=== PATIENT | male | born 1975 | race Caucasian/White ===

== ENCOUNTER 2024-03-02 14:21 | Outpatient (REF) | payer BC, SELFPAY | END 2024-03-02 14:22 | disposition home or self-care (01) | LOC: HO.SH 14:21 | PROVIDERS: Visit Provider Nurse Practitioner Family | DX: Z01.118 Encounter for examination of ears and hearing with other abnormal findings (principal); H90.3 Sensorineural hearing loss, bilateral | CPT/HCPCS: 92557; 92567 ==

== ENCOUNTER 2024-11-08 13:16 | Inpatient (IN) | payer OTHER, SELFPAY ==
[2024-11-08 13:29] VITALS: BP 166/91; PULSE 70; RESP 16; TEMP 36.6; O2SAT 94
--- NOTE | 2024-11-08 13:36 | ED_ITS ---
HPI - Psych General Chief Complaint: Psychiatric Symptoms Stated Complaint: Section 12, SI/HI, hx bipolar Source: patient, EMS and old records reviewed Mode of arrival: EMS Limitations: no limitations History of Present Illness ED Provider: SHONA HPI Narrative: 49 yo male with PMH of LVH, DM, bipolar who smokes a lot of weed here with SI which I suspect is due to family issues he has plans to shoot himself his neighbor has guns and he has access to them. He denies any trauma or ingestion. He was sent in on section 12. He is very vague on arrival states I am going to need a lot of tissues. MD complaint: suicidal ideation and feels depressed Onset (ago): week(s) Duration: getting worse History of same: Yes Relieving factors: none Exacerbating factors: other Context: significant life stressor Associated psychiatric symptoms: depression and suicidal ideation Associated symptoms: denies other symptoms Treatments prior to arrival: placed on mental health hold If self harm: admits thoughts of self harm Related Data Home Medications ?Medication ?Instructions ?Recorded ?Confirmed atorvastatin 20 mg tablet 20 mg PO BEDTIME 11/08/24 11/08/24 blood sugar diagnostic (Contour 11/08/24 11/08/24 Next Test Strips) buspirone 10 mg tablet 10 mg PO BID 11/08/24 11/08/24 dapagliflozin propanediol 10 mg 10 mg PO DAILY 11/08/24 11/08/24 tablet (Farxiga) dulaglutide 0.75 mg/0.5 mL 0.75 mg subcut QWEEK 11/08/24 11/08/24 [facility] eplerenone 50 mg tablet 50 mg PO DAILY 11/08/24 11/08/24 fluticasone propionate 50 2 spray intranasal DAILY PRN 11/08/24 11/08/24 mcg/actuation nasal Allergy Symptoms spray,suspension lamotrigine 150 mg tablet 150 mg PO DAILY 11/08/24 11/08/24 lisinopril 20 mg tablet 20 mg PO DAILY 11/08/24 11/08/24 metformin 500 mg tablet 500 mg PO QPM 11/08/24 11/08/24 metoprolol succinate 25 mg 25 mg PO QAM 11/08/24 11/08/24 tablet,extended release 24 hr nicotine 21 mg/24 hr daily 1 patch topical DAILY 11/08/24 11/08/24 transdermal patch sertraline 100 mg tablet 200 mg PO DAILY 11/08/24 11/08/24 Allergies Allergy/AdvReac Type Severity Reaction Status Date / Time No Known Allergies Allergy Verified 11/08/24 13:45 Review of Systems 2 Review of Systems: Constitutional : No Fever, No Chills ENT/Mouth : No Ear Pain, No Nasal Congestion, No sore throat Eyes: No Eye Pain, No Swelling, No Redness Cardiovascular : No Chest Pain, No SOB Respiratory : No Cough, No Sputum, No Dyspnea Gastrointestinal : No Nausea, No Vomiting, No Diarrhea, No Hematochezia, No Melena Genitourinary : No Dysuria, No Urinary Frequency, No Hematuria Musculoskeletal : No Myalgias Skin : No Skin Lesions, No rash Neuro : No Weakness, No Numbness, No Paresthesias, No Dizziness, No Headache Psych : positive Anxiety, positive Depression, positive SI no HI All other systems reviewed and are negative [facility] Past Medical History Attestation statement: The following information was validated with the patient. Source: old records reviewed Medical History (Updated 11/08/24 @ 13:55 by Teresa Urias DO) LVH (left ventricular hypertrophy) Bipolar 1 disorder Diabetes Social History Social History (Updated 11/08/24 @ 13:53 by Teresa Urias DO) Patient Tobacco Use Status: Current everyday Tobacco user Substance Use Type: Marijuana Advance Directives: No Advance Directives Information Provided: No Do you have a plan to hurt others: High Lethality and Vague Physical Exam 2 Vital Signs: Vital Signs: Last Vital Signs Temp 97.8 F 11/08/24 13:29 Pulse 70 11/08/24 13:29 Resp 16 11/08/24 13:29 BP 166/91 H 11/08/24 13:29 Pulse Ox 94 11/08/24 13:29 O2 Del Method Room Air 11/08/24 13:32 BMI result Body Mass Index 30.0 Appearance: Alert. Oriented X3. No acute distress. Eyes: Pupils equal, round and reactive to light. ENT: Pharynx normal. Neck: Normal inspection. Neck supple. CVS: Normal heart rate and rhythm. Pulses normal. Respiratory: No respiratory distress. Breath sounds normal. Abdomen: Soft and nontender. Skin: Skin warm and dry. Normal skin color. Normal skin turgor. Extremities: No lower extremity edema. No calf ttp Neuro: Oriented X 3. No motor deficit. No sensory deficit. CN2-12 intact Medications Administered Discontinued Medications Generic Name Dose Route Start Last Admin Trade Name Hunter PRN Reason Stop Dose Admin Nicotine 21 mg 11/08/24 13:47 11/08/24 14:11 Nicotine 21 Mg Patch.Td24 TRANSDERMA 11/08/24 13:48 21 mg ONCE ONE Administration Medical Decision Making Medical Decision Making [facility] Narrative: 49 yo male with PMH of bipolar, DM, LVH here with c/o SI and depression has access to guns also has plan to blow himself up - at this time he is on S12 will need labs, CARE team consult. He denies any medical complaints 11/08/2024 at 20:13 hours, Dr. Tahir Cordero's note: Patient was laboratory evaluation was unremarkable. Drug screen urine was positive for marijuana. Twelve EKG revealed a normal QTC interval but a prolonged QRS with a nonspecific interventricular conduction delay.The patient was evaluated by the care team and did meet criteria for admission. The patient will be admitted to our psychiatric unit. Differential Diagnosis Differential Diagnoses: The differential diagnosis associated with the presentation includes depression, SI Admission/Observation Consideration of admission/observation: Escalation of care including admission/observation considered physician observation ordered at 154pm pending CARE team Consult Healthcare Provider Management of the patient was discussed with: Behavioral Health Provider Lab Data [facility] Lab Attestation statement: I reviewed the patient's lab results. My interpretation patient's laboratory evaluation as follows: WBC elevated 13,900. BUN elevated 22 with a normal creatinine of 0.89. LFTs were normal. Urinalysis was positive for protein and glucose. Microscopic was negative for infection. Alcohol was below detectable limits. Drug screen urine was positive for marijuana. 11/08/24 13:56 11/08/24 13:56 Labs: Lab Results 11/08/24 11/08/24 Range/Units 13:56 14:02 WBC 13.9 H (4.8-10.8) X10*3/uL RBC 5.66 (4.60-5.80) X10*6/uL Hgb 16.8 (14.0-18.0) g/dl Hct 49.1 (42.0-52.0) % MCV 86.7 (80.0-98.0) fL MCH 29.7 (27.0-33.0) pg MCHC 34.2 (31.0-36.0) g/dl RDW 13.3 (11.0-16.0) % Plt Count 223 (160-400) X10*3/uL MPV 8.9 L (9.4-12.4) fL Immature Gran % (Auto) 0.6 H (0.0-0.4) % Neut % (Auto) 70.0 (45-73) % Lymph % (Auto) 20.3 (20-40) % [place] % (Auto) 5.8 (2-11) % Eos % (Auto) 2.9 (0-4) % Baso % (Auto) 0.4 (0-2) % Lymph # (Auto) 2.8 (1.2-4.9) X10*3/uL [place] # (Auto) 0.8 (0.1-1.2) X10*3/uL Eos # (Auto) 0.4 (0.0-0.4) X10*3/uL Baso # (Auto) 0.1 (0.0-0.2) X10*3/uL Abs Immat Gran (auto) 0.08 H (0.00-0.03) X10*3/uL Absolute Neuts (auto) 9.7 H (2.0-8.3) x10*3/uL Absolute Nucleated RBC 0.000 (0.0-0.012) X10*3/uL Nucleated RBC % (auto) 0.0 (0.0-0.2) /100WBC Sodium 139 (135-145) mmol/L Potassium 4.1 (3.3-5.1) mmol/L Chloride 104 (96-108) mmol/L Carbon Dioxide 28 (22-29) mmol/L Anion Gap 11 L (12-20) BUN 22 H (9-16) mg/dL Creatinine 0.89 (0.5-1.4) mg/dL Estim Creat Clear Calc 99.8 Estimated GFR > 60 Random Glucose 126 H (60-115) mg/dL Calcium 9.9 (8.4-10.2) mg/dL Magnesium 2.0 (1.6-2.6) mg/dL Total Bilirubin 0.5 (0.0-1.0) mg/dL Direct Bilirubin 0.2 (0.0-0.5) mg/dL AST 22 (5-37) U/L ALT 17 (0-40) U/L Alkaline Phosphatase 98 (39-117) U/L Total Protein 7.4 (6.5-8.0) g/dL Albumin 4.4 (3.5-5.0) g/dL Urine Color Yellow Urine Appearance Clear Urine pH 5.5 (5.0-9.0) Ur Specific [place] 1.025 (1.005-1.025) Urine Protein 30 (1+) H (Neg-Trace) mg/dL Urine Glucose (UA) >=1000 H (Negative) mg/dL Urine Ketones Negative (Negative) mg/dL Urine Blood Negative (Negative) Urine Nitrite Negative (Negative) Ur Leukocyte Esterase Negative (Negative) Urine RBC 0-2 (0-2) /HPF Urine WBC 0-5 (0-5) /HPF Ur Squamous Epith Cells 0-2 (0-2) /HPF Urine Bacteria None Seen (None Seen) Hyaline Casts 0-2 (0-2) /LPF Urine Opiates Screen Not Detected (Not Detect) Ur Buprenorphine Scrn Not Detected (Not Detect) ng/mL Ur Oxycodone Screen Not Detected (Not Detect) ng/mL Urine Methadone Screen Not Detected (Not Detect) ng/mL Urine Fentanyl Screen Not Detected (Not Detect) Ur Barbiturates Screen Not Detected (Not Detect) Ur Phencyclidine Scrn Not Detected (Not Detect) Ur Amphetamines Screen Not Detected (Not Detect) U Benzodiazepines Scrn Not Detected (Not Detect) Urine Cocaine Screen Not Detected (Not Detect) U Marijuana (THC) Screen POSITIVE H (Not Detect) Ethyl Alcohol < 10 mg/dL Independent Interpretation I performed an independent interpretation of an: EKG Interpretation: My independent interpretation patient's 12 EKG done on 11/09/2023 at 16:56 hours is as follows: Sinus rhythm with a rate of 67 and a first-degree AV block with a [place] of 220 milliseconds, prolonged QRS of 100 milliseconds, normal QTC of 450 milliseconds, no ST segment elevation, no ST segment depression, nonspecific intraventricular conduction delay, Q-waves V1 through V2 . No old EKG for comparison Independent Historian Clinical information obtained from an independent historian. History obtained from or confirmed by: EMS External Record Review External record reviewed: Outpatient record Discharge Plan Discharge Clinical Impression: Suicidal ideation Patient Disposition: Admitted As Inpatient Interventions: [place]-Suicide Risk Severity Scale Last Done: 11/08/24 13:47
--- NOTE | 2024-11-08 13:47 | ECG_ITS ---
Test Reason : M5 ADMISSION Blood Pressure : */* mmHG Vent. Rate : 67 BPM Atrial Rate : 67 BPM P-R Int : 220 ms QRS Dur : 100 ms QT Int : 426 ms P-R-T Axes : 12 86 70 degrees QTcB Int : 450 ms Sinus rhythm with 1st degree A-V block Left atrial enlargement Left ventricular hypertrophy ( Sokolow-Lafleur , Stephan product , Romhilt-Jacob ) Cannot rule out Septal infarct , age undetermined Abnormal ECG No previous ECGs available Referred By: Teresa Urias Electronically Signed By: GAGE UNDERWOOD MD
--- NOTE | 2024-11-08 13:49 | PC.NURSE ---
[facility] staff member called (Karin) to fax over assessment report. Callback number or
[2024-11-08 14:11] LABS: MANUAL DIFF FLAG NO
[2024-11-08] MEDS: Nicotine 21 MG PATCH.TD24 TRANSDERMA (14:11)
[2024-11-08 14:13] LABS: Basophils Absolute Auto 0.1 X10*3/uL (0.0-0.2); Basophils Percent Auto 0.4 % (0-2); Eosinophils Absolute Auto 0.4 X10*3/uL (0.0-0.4); Eosinophils Percent Auto 2.9 % (0-4); Hematocrit 49.1 % (42.0-52.0); Hemoglobin 16.8 g/dl (14.0-18.0); Imm Gran Abs Auto 0.08 X10*3/uL (0.00-0.03); Imm Gran Pct Auto 0.6 % (0.0-0.4); Lymphocytes Absolute Auto 2.8 X10*3/uL (1.2-4.9); Lymphocytes Percent Auto 20.3 % (20-40); Mean Corpuscular HGB Conc 34.2 g/dl (31.0-36.0); Mean Corpuscular Hemoglobin 29.7 pg (27.0-33.0); Mean Corpuscular Volume 86.7 fL (80.0-98.0); Mean Platelet Volume 8.9 fL (9.4-12.4); Monocytes Absolute Auto 0.8 X10*3/uL (0.1-1.2); Monocytes Percent Auto 5.8 % (2-11); Neutrophils Absolute Auto 9.7 x10*3/uL (2.0-8.3); Platelet Count 223 X10*3/uL (160-400); Red Blood Count 5.66 X10*6/uL (4.60-5.80); Red Cell Distribution Width 13.3 % (11.0-16.0); White Blood Count 13.9 X10*3/uL (4.8-10.8)
[2024-11-08 14:25] LABS: Amphetamine Screen Urine Not Detected (Not Detect); Barbiturates, Urine Not Detected (Not Detect); Benzodiazepines Screen Urine Not Detected (Not Detect); Buprenorphine Scr Not Detected (Not Detect); Cannabinoid Screen Urine POSITIVE (Not Detect); Cocaine Screen Urine Not Detected (Not Detect); Fentanyl, urine Not Detected (Not Detect); Methadone Screen, Urine Not Detected (Not Detect); Opiate Screen Urine Not Detected (Not Detect); Oxycodone Screen Urine Not Detected (Not Detect); Phencyclidine Screen Urine Not Detected (Not Detect)
[2024-11-08 14:31] LABS: Alanine Aminotransferase 17 U/L (0-40); Albumin Level 4.4 g/dL (3.5-5.0); Alkaline Phosphatase 98 U/L (39-117); Anion Gap 11 (12-20); Aspartate Amino Transferase 22 U/L (5-37); Bilirubin Direct 0.2 mg/dL (0.0-0.5); Bilirubin Total 0.5 mg/dL (0.0-1.0); Blood Urea Nitrogen 22 mg/dL (9-16); Calcium 9.9 mg/dL (8.4-10.2); Carbon Dioxide 28 mmol/L (22-29); Chloride 104 mmol/L (96-108); Creatinine Clr Calc Pharmacy 99.8; Estimated Glomerular Filt Rate > 60; Ethanol < 10 mg/dL; Glucose Random 126 mg/dL (60-115); Potassium 4.1 mmol/L (3.3-5.1); Sodium 139 mmol/L (135-145); Total Protein 7.4 g/dL (6.5-8.0)
[2024-11-08 15:14] LABS: Appearance Urine Clear; Color Urine Yellow; Glucose Urine UA >=1000 mg/dL (Negative); Leukocyte Esterase Urine Negative (Negative); Nitrite Urine Negative (Negative); PH 5.5 (5.0-9.0); Specific Gravity - Urine 1.025 (1.005-1.025); UMIC TRIGGER UA YES; Urine Blood Negative (Negative); Urine Ketones Negative (Negative); Urine Protein 30 (1+) mg/dL (Neg-Trace)
[2024-11-08 15:18] LABS: Bacteria Urine None Seen (None Seen); Hyaline Casts Urine 0-2 /LPF (0-2); RBC Urine 0-2 /HPF (0-2); Squamous Epithelial Cell Urine 0-2 /HPF (0-2); WBC Urine 0-5 /HPF (0-5)
[2024-11-08 20:00] VITALS: BP 167/98; PULSE 74; TEMP 36.8; O2SAT 98
--- NOTE | 2024-11-08 20:09 | PC.NURSE ---
spoke to dr emery lab that was ordered for 1921 was intended for 11/09/24
--- NOTE | 2024-11-08 20:21 | PHA.MEDREC ---
Addendum entered by Se Barragan [facility] 11/08/24 20:21: med rec reviewed Original Note: Pharmacy Consult ? Medication Reconciliation Pharmacy has completed the medication reconciliation. Reviewed med rec done by nursing.
[2024-11-08] MEDS: Metoprolol Succinate ER 25 MG TAB.ER.24H PO (21:26)
[2024-11-08] MEDS: traZODone HCL 50 MG TABLET PO (21:26)
[2024-11-08] MEDS: busPIRone HCl 10 MG TABLET PO (21:26)
[2024-11-08] MEDS: hydrOXYzine HCL 25 MG TABLET PO (21:26)
[2024-11-08] MEDS: metFORMIN HCl 500 MG TABLET PO (21:26)
[2024-11-08] MEDS: Atorvastatin Calcium 20 MG TABLET PO (21:26)
--- NOTE | 2024-11-09 00:21 | PC.ADMIT ---
50 year old male patient with PMH of DM, HTN, Hyperlipidemia and LVH admitted to at 2039 on 11/08/24 having signed CV with diagnosis of SI/Depression. Per ED report patient planned to shoot himself with guns belonging to his neighbor which he had access to. Evaluated in the community patient arrived at [facility] as Section 12. Upon arrival to patient observed to be alert and oriented, well groomed, communicative and open to hospitalization. Vital signs obtained WNL, Height and weight obtained. Skin check unremarkable. Patient calm and cooperative with admission process. Patient states he has thoughts of self harm and has been thinking about how he might accomplish this however did not mention shooting himself to TW. Patient is recently homeless and unemployed. Dilip reports that his has recently been a patient on this unit. Tox screen positive for cannabis. Patient states he is an everyday user. Also reports smoking 1 pack of cigarettes daily. Arrived on unit wearing patch. Patient declined offer of Flu vaccine. Med reconciliation completed in ED. Patient placed on 15 minute checks for safety.
[2024-11-09 08:00] VITALS: BP 120/80
[2024-11-09] MEDS: lamoTRIgine 25 MG TABLET 150 MG PO (08:57)
[2024-11-09 08:58] VITALS: BP 120/80
[2024-11-09] MEDS: Metoprolol Succinate ER 25 MG TAB.ER.24H PO (08:58)
[2024-11-09 08:59] VITALS: BP 120/80
[2024-11-09] MEDS: lisinopriL 20 MG TABLET PO (08:59)
[2024-11-09] MEDS: Empagliflozin 10 MG TABLET PO (08:59)
[2024-11-09] MEDS: busPIRone HCl 10 MG TABLET PO ×2 (08:59→21:10)
[2024-11-09] MEDS: Sertraline HCL 100 MG TABLET 200 MG PO (09:00)
[2024-11-09] MEDS: Nicotine 21 MG PATCH.TD24 TRANSDERMA (09:02)
[2024-11-09 09:14] LABS: Estimated Average Glucose 111 mg/dL; Hemoglobin A1C 172.2261 umol/L; Hemoglobin A1c % 5.5 % (<6.0); Total Hemoglobin (HGBA1C) 4712.1764 umol/L
[2024-11-09 09:17] LABS: Alanine Aminotransferase 20 U/L (0-40); Albumin Level 4.3 g/dL (3.5-5.0); Alkaline Phosphatase 97 U/L (39-117); Anion Gap 13 (12-20); Aspartate Amino Transferase 25 U/L (5-37); Bilirubin Total 0.5 mg/dL (0.0-1.0); Blood Urea Nitrogen 18 mg/dL (9-16); Calcium 10.1 mg/dL (8.4-10.2); Carbon Dioxide 29 mmol/L (22-29); Chloride 105 mmol/L (96-108); Cholesterol 117 mg/dL (<200); Creatinine Clr Calc Pharmacy 105.8; Estimated Glomerular Filt Rate > 60; Glucose Random 92 mg/dL (60-115); HDL Cholesterol 41 mg/dL (>40); LDL Cholesterol Calculated 62 mg/dL (<100); Potassium 4.7 mmol/L (3.3-5.1); Sodium 142 mmol/L (135-145); Total Protein 7.3 g/dL (6.5-8.0); Triglycerides 72 mg/dL (<150)
[2024-11-09 09:32] LABS: TSH reflex Free T4 1.37 uIU/mL (0.32-4.0)
--- NOTE | 2024-11-09 14:23 | P.HPPS_ITS ---
HPI Date of Service: 11/09/24 Chief Complaint: Section 12, SI/HI, hx bipolar Sources of Information: patient interviewed, chart reviewed and crisis/core team assessment reviewed Additional Sources of Information: Seen 1130am HPI Subjective Notes: Terry Warning and Conditional Voluntary Healthcare Proxy: No Guardianship: No Medical Problems Affecting Mental Status: No Narrative: I had a good job and lost it, I have a gambling problem and an impulse control problem (bankruptcy 2020) closed my 401K for 20K, took out a credit card for $500 to pay bills. I left money mgt to my , but needed money when she was hospitalized. 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 I am defeated and I want to give up. 49 yo male, hx of bipolar disorder, reports SI due to being asked for divorce, needing to move from his home, being unemployed, feeling worthless and not keeping up with medications, including cardiac medications (Dx LVH). Reports health is failing and addiction to cannabis-3 grams daily. Reports was in pt last week, told him when she was discharged she wanted a divorce. Reports he understands this to separate finances, however feels betrayed and abandoned. He does not want to leave the family. Pt met with his therapist on Wednesday who suggested a crisis eval. By history, pt has pictured himself dying in certain circumstances for years and has been thinking about using a gun to suicide. He has also been thinking of carving his arm to remove the family tattoo he, and son designed. Identifies main concerns as housing, transportation, unemployment, medications and loss- my has been my rock. Note: visited this afternoon and is supportive of pt, of pt getting treatment, of herself continuing treatment and is available to assist him in this process. Past Psychiatric History: IP: Denies OP: [facility], Roma Woo-therapyTonya med provider SA: Denies-did have razors out to cut 17 years ago, stopped by his dog Medical Evaluation Reviewed: Yes [facility] Medical History (Updated 11/09/24 @ 20:33 by Adriana Villa, [employer]) Cannabis use disorder Bipolar disorder LVH (left ventricular hypertrophy) Bipolar 1 disorder Diabetes Narrative: CAD, Deaf Right Ear since childhood 30% hearing loss in L ear-needs hearing aide Social History: Born in [place]. Mom on February 16 when pt was 15-[place]. Sister was 4 years older Pt to live with father in [place]-they were not close, wanted to emancipate at 16 and essentially did-staying with friends, working at [employer]. States step mother hated him and there was conflict. Family moved to [place] from [place]. Has one younger step sister and brother, one half sister. Graduated from [employer] with honors, given a full [employer] scholarship but declined. Lived with a girlfriend and had a home and safe spot This relationship ended. Pt current in 2017 and reports her family has been very good to him Substance History: cannabis 3 grams daily Trauma History: Affirms Diagnostics Vital Signs (24Hr): Vital Signs - 24 hr 11/08/24 20:00 11/09/24 08:00 11/09/24 08:58 Temperature 98.2 F Pulse Rate 74 Blood Pressure 167/98 H 120/80 120/80 Pulse Oximetry 98 Oxygen Delivery Method Room Air 11/09/24 08:59 Temperature Pulse Rate Blood Pressure 120/80 Pulse Oximetry Oxygen Delivery Method BMI result Body Mass Index 30.0 Labs 11/08/24 13:56 11/09/24 08:09 Labs: Laboratory Results - last 48 hr 11/08/24 11/08/24 11/09/24 13:56 14:02 08:09 WBC 13.9 H RBC 5.66 Hgb 16.8 Hct 49.1 MCV 86.7 MCH 29.7 MCHC 34.2 RDW 13.3 Plt Count 223 MPV 8.9 L Immature Gran % (Auto) 0.6 H Neut % (Auto) 70.0 Lymph % (Auto) 20.3 [place] % (Auto) 5.8 Eos % (Auto) 2.9 Baso % (Auto) 0.4 Lymph # (Auto) 2.8 [place] # (Auto) 0.8 Eos # (Auto) 0.4 Baso # (Auto) 0.1 Abs Immat Gran (auto) 0.08 H Absolute Neuts (auto) 9.7 H Absolute Nucleated RBC 0.000 Nucleated RBC % (auto) 0.0 Sodium 139 142 Potassium 4.1 4.7 Chloride 104 105 Carbon Dioxide 28 29 Anion Gap 11 L 13 BUN 22 H 18 H Creatinine 0.89 0.84 Estim Creat Clear Calc 99.8 105.8 Estimated GFR > 60 > 60 Random Glucose 126 H 92 Estimat Average Glucose 111 Hemoglobin A1c % 5.5 Calcium 9.9 10.1 Magnesium 2.0 Total Bilirubin 0.5 0.5 Direct Bilirubin 0.2 AST 22 25 ALT 17 20 Alkaline Phosphatase 98 97 Total Protein 7.4 7.3 Albumin 4.4 4.3 Triglycerides 72 Cholesterol 117 LDL Cholesterol, Calc 62 HDL Cholesterol 41 TSH 1.37 Urine Color Yellow Urine Appearance Clear Urine pH 5.5 Ur Specific [place] 1.025 Urine Protein 30 (1+) H Urine Glucose (UA) >=1000 H Urine Ketones Negative Urine Blood Negative Urine Nitrite Negative Ur Leukocyte Esterase Negative Urine RBC 0-2 Urine WBC 0-5 Ur Squamous Epith Cells 0-2 Urine Bacteria None Seen Hyaline Casts 0-2 Urine Opiates Screen Not Detected Ur Buprenorphine Scrn Not Detected Ur Oxycodone Screen Not Detected Urine Methadone Screen Not Detected Urine Fentanyl Screen Not Detected Ur Barbiturates Screen Not Detected Ur Phencyclidine Scrn Not Detected Ur Amphetamines Screen Not Detected U Benzodiazepines Scrn Not Detected Urine Cocaine Screen Not Detected U Marijuana (THC) Screen POSITIVE H Ethyl Alcohol < 10 Meds/Allergies Meds Home Medications ?Medication ?Instructions ?Recorded ?Confirmed ?Type atorvastatin 20 mg tablet 20 mg PO BEDTIME 11/08/24 11/08/24 History blood sugar diagnostic (Contour 11/08/24 11/08/24 History Next Test Strips) buspirone 10 mg tablet 10 mg PO BID 11/08/24 11/08/24 History dapagliflozin propanediol 10 mg 10 mg PO DAILY 11/08/24 11/08/24 History tablet (Farxiga) dulaglutide 0.75 mg/0.5 mL 0.75 mg subcut QWEEK 11/08/24 11/08/24 History subcutaneous pen injector ([facility]ulicity) eplerenone 50 mg tablet 50 mg PO DAILY 11/08/24 11/08/24 History fluticasone propionate 50 2 spray intranasal DAILY PRN 11/08/24 11/08/24 History mcg/actuation nasal Allergy Symptoms spray,suspension lamotrigine 150 mg tablet 150 mg PO DAILY 11/08/24 11/08/24 History lisinopril 20 mg tablet 20 mg PO DAILY 11/08/24 11/08/24 History metformin 500 mg tablet 500 mg PO QPM 11/08/24 11/08/24 History metoprolol succinate 25 mg 25 mg PO QAM 11/08/24 11/08/24 History tablet,extended release 24 hr nicotine 21 mg/24 hr daily 1 patch topical DAILY 11/08/24 11/08/24 History transdermal patch sertraline 100 mg tablet 200 mg PO DAILY 11/08/24 11/08/24 History Allergies Allergies Allergy/AdvReac Type Severity Reaction Status Date / Time No Known Allergies Allergy Verified 11/08/24 13:45 Mental Status Exam Mental Status Exam Patient Appearance: Appropriate Patient Orientation: Person, Place, Time and Situation Level of Consciousness: Alert Patient Behavior: Talkative and Good Eye Contact Mood Description: Depressed Affect Description: Flat Patient Cognition Impaired: No Ability to Follow Directions: Good Speech Pattern: Spontaneous Speech Memory Description: Intact Hallucinations: None Delusions: Not Present Thought Process: Rumination Thought Content: positive for Circumstantial and positive for Perseveration Depressive Symptoms: Hopelessness, Unhappiness, Thoughts of /Suicide and Low Self Esteem Judgement: Fair Assessment & Plan Assessment & Plan (1) Bipolar disorder: Status: Acute Code(s): F31.9 - Bipolar disorder, unspecified (2) Cannabis use disorder: Status: Acute Code(s): F12.90 - Cannabis use, unspecified, uncomplicated (3) Suicidal ideation: Status: Acute Code(s): R45.851 - Suicidal ideations Plan Admit, CV, 15 minute checks Restart regime Diagnostics as needed Collateral contact Cardiology consult-LVH with med non compliance Encourage milieu involvement Patient educated on: therapeutic strategies Reason for continued inpatient stay Substantial Risk for: rapid decompensation Statement Statement: I have reviewed the history and physical and performed a pertinent examination on my patient. No changes have occurred unless specified. If the History and Physical was not performed prior to admission, the Hospitalist's service will be consulted for completing the admission physical. Time Spent With Patient Time: Total time managing care of this patient today ____ minutes.
[2024-11-09 21:09] VITALS: BP 137/71; PULSE 68; RESP 16; TEMP 36.5; O2SAT 94
[2024-11-09] MEDS: Atorvastatin Calcium 20 MG TABLET PO (21:10)
[2024-11-09] MEDS: metFORMIN HCl 500 MG TABLET PO (21:11)
[2024-11-09] MEDS: traZODone HCL 50 MG TABLET PO (22:03)
[2024-11-10 07:57] VITALS: BP 137/90; PULSE 71; RESP 16; TEMP 36.7; O2SAT 97
[2024-11-10] MEDS: Metoprolol Succinate ER 25 MG TAB.ER.24H PO (08:25)
[2024-11-10] MEDS: Sertraline HCL 100 MG TABLET 200 MG PO (08:25)
[2024-11-10] MEDS: lamoTRIgine 100 MG TABLET 150 MG PO (08:25)
[2024-11-10] MEDS: busPIRone HCl 10 MG TABLET PO ×2 (08:25→20:54)
[2024-11-10] MEDS: Empagliflozin 10 MG TABLET PO (08:26)
[2024-11-10] MEDS: lisinopriL 20 MG TABLET PO (08:26)
[2024-11-10] MEDS: Nicotine 21 MG PATCH.TD24 TRANSDERMA (09:26)
--- NOTE | 2024-11-10 10:12 | HO.PSYCHPN ---
Subjective Subjective Date of Service: 11/10/24 Reason For Visit: Section 12, SI/HI, hx bipolar Subjective Notes: Conditional Voluntary Healthcare Proxy: No Guardianship: No Medical Problems Affecting Mental Status: No Interim History: Reports feeling improved. Has reconnected with family who have given him parameters post discharge regarding finding housing and beginning treatment. Seen by cardiology as pt reports stopping meds prior to admission for LVH Eplerenone reorded to pharmacy as pt needs to restart. Review of regime. Pt reports no changes needed as yet-he needs to re-establish regime due to noncompliance prior to admit. Visable in milieu. Attending groups, just beginning to participate Slept 8 hours Denies SI,HI.,VH. States he is feeling more hopeful and supported today. Medication Compliance: Yes Side effects from medications: No Attending Groups: Yes Review of Systems seen by cardiology today Review of Systems Review of Systems Denies Mental Status Exam Mental Status Exam Patient Appearance: Appropriate Patient Orientation: Person, Place, Time and Situation Level of Consciousness: Alert Patient Behavior: Talkative and Good Eye Contact Mood Description: Depressed Affect Description: Flat Patient Cognition Impaired: No Ability to Follow Directions: Good Speech Pattern: Spontaneous Speech Memory Description: Intact Hallucinations: None Delusions: Not Present Thought Process: Rumination Thought Content: positive for Circumstantial and positive for Perseveration Depressive Symptoms: Diff. Making Decisions, Unhappiness and Low Self Esteem Judgement: Fair Diagnostics Vital Signs (24Hr): Vital Signs - 24 hr 11/09/24 21:09 11/10/24 07:57 Temperature 97.7 F 98.1 F Pulse Rate 68 71 Respiratory Rate 16 16 Blood Pressure 137/71 137/90 H Pulse Oximetry 94 97 Oxygen Delivery Method Room Air Room Air BMI result Body Mass Index 30.0 Labs 11/08/24 13:56 11/09/24 08:09 Labs: Laboratory Results - last 48 hr 11/08/24 11/08/24 11/09/24 13:56 14:02 08:09 WBC 13.9 H RBC 5.66 Hgb 16.8 Hct 49.1 MCV 86.7 MCH 29.7 MCHC 34.2 RDW 13.3 Plt Count 223 MPV 8.9 L Immature Gran % (Auto) 0.6 H Neut % (Auto) 70.0 Lymph % (Auto) 20.3 [place] % (Auto) 5.8 Eos % (Auto) 2.9 Baso % (Auto) 0.4 Lymph # (Auto) 2.8 [place] # (Auto) 0.8 Eos # (Auto) 0.4 Baso # (Auto) 0.1 Abs Immat Gran (auto) 0.08 H Absolute Neuts (auto) 9.7 H Absolute Nucleated RBC 0.000 Nucleated RBC % (auto) 0.0 Sodium 139 142 Potassium 4.1 4.7 Chloride 104 105 Carbon Dioxide 28 29 Anion Gap 11 L 13 BUN 22 H 18 H Creatinine 0.89 0.84 Estim Creat Clear Calc 99.8 105.8 Estimated GFR > 60 > 60 Random Glucose 126 H 92 Estimat Average Glucose 111 Hemoglobin A1c % 5.5 Calcium 9.9 10.1 Magnesium 2.0 Total Bilirubin 0.5 0.5 Direct Bilirubin 0.2 AST 22 25 ALT 17 20 Alkaline Phosphatase 98 97 Total Protein 7.4 7.3 Albumin 4.4 4.3 Triglycerides 72 Cholesterol 117 LDL Cholesterol, Calc 62 HDL Cholesterol 41 TSH 1.37 Urine Color Yellow Urine Appearance Clear Urine pH 5.5 Ur Specific [place] 1.025 Urine Protein 30 (1+) H Urine Glucose (UA) >=1000 H Urine Ketones Negative Urine Blood Negative Urine Nitrite Negative Ur Leukocyte Esterase Negative Urine RBC 0-2 Urine WBC 0-5 Ur Squamous Epith Cells 0-2 Urine Bacteria None Seen Hyaline Casts 0-2 Urine Opiates Screen Not Detected Ur Buprenorphine Scrn Not Detected Ur Oxycodone Screen Not Detected Urine Methadone Screen Not Detected Urine Fentanyl Screen Not Detected Ur Barbiturates Screen Not Detected Ur Phencyclidine Scrn Not Detected Ur Amphetamines Screen Not Detected U Benzodiazepines Scrn Not Detected Urine Cocaine Screen Not Detected U Marijuana (THC) Screen POSITIVE H Ethyl Alcohol < 10 Medications Medications Current Medications Acetaminophen (Acetaminophen 325 Mg Tablet) 650 mg PO Q6H PRN PRN Reason: Headache/Pain, Scale 1-10 Al Hydroxide/Mg Hydroxide (Magnesium Hydrox/Alum Hydrox 30 Ml Oral.Susp) 30 ml PO Q6H PRN PRN Reason: Heartburn/Nausea Atorvastatin Calcium (Atorvastatin Calcium 20 Mg Tablet) 20 mg PO BEDTIME [facility] Last Admin: 11/09/24 21:10 Dose: 20 mg Buspirone HCl (Buspirone Hcl 10 Mg Tablet) 10 mg PO BID [facility] Last Admin: 11/10/24 08:25 Dose: 10 mg Empagliflozin (Empagliflozin 10 Mg Tablet) 10 mg PO DAILY [facility] Last Admin: 11/10/24 08:26 Dose: 10 mg Fluticasone Propionate (Fluticasone Propionate Nasal 16 Gm [place]) 2 spray NOSTRIL-B DAILY PRN PRN Reason: Allergy Symptoms Hydroxyzine HCl (Hydroxyzine Hcl 25 Mg Tablet) 25 mg PO Q6H PRN PRN Reason: mild anxiety Last Admin: 11/08/24 21:26 Dose: 25 mg Lamotrigine (Lamotrigine 100 Mg Tablet) 150 mg PO DAILY [facility] Last Admin: 11/10/24 08:25 Dose: 150 mg Lisinopril (Lisinopril 20 Mg Tablet) 20 mg PO DAILY [facility]; Protocol Last Admin: 11/10/24 08:26 Dose: 20 mg Magnesium Hydroxide (Milk Of Magnesia 30 Ml Oral.Susp) 30 ml PO DAILY PRN PRN Reason: Constipation Metformin HCl (Metformin Hcl 500 Mg Tablet) 500 mg PO BEDTIME [facility] Last Admin: 11/09/24 21:11 Dose: 500 mg Metoprolol Succinate (Metoprolol Succinate Er 25 Mg Tab.Er.24h) 25 mg PO DAILY [facility]; Protocol Last Admin: 11/10/24 08:25 Dose: 25 mg Nicotine (Nicotine 21 Mg Patch.Td24) 21 mg TRANSDERMA DAILY PRN PRN Reason: smoking cessation Last Admin: 11/10/24 09:26 Dose: 21 mg Nicotine Polacrilex (Nicotine Polacrilex 2 Mg Gum) 4 mg BUCCAL Q2H PRN PRN Reason: Nicotine Cravings Dulaglutide 0.75 Mg/ (0.5 Ml) 1 each SUBCUT Mo [facility] Non-Formulary Medication (Eplerenone) 50 mg PO DAILY [facility] Olanzapine (Olanzapine 5 Mg Tablet) 5 mg PO TID PRN PRN Reason: agitation Sertraline HCl (Sertraline Hcl 100 Mg Tablet) 200 mg PO DAILY [facility] Last Admin: 11/10/24 08:25 Dose: 200 mg Trazodone HCl (Trazodone Hcl 50 Mg Tablet) 50 mg PO BEDTIME MRX1 PRN PRN Reason: Insomnia Last Admin: 11/09/24 22:03 Dose: 50 mg Allergies Allergies Allergy/AdvReac Type Severity Reaction Status Date / Time No Known Allergies Allergy Verified 11/08/24 13:45 Assessment & Plan Assessment & Plan (1) Bipolar disorder: Status: Acute Code(s): F31.9 - Bipolar disorder, unspecified (2) Cannabis use disorder: Status: Acute Code(s): F12.90 - Cannabis use, unspecified, uncomplicated (3) Suicidal ideation: Status: Acute Code(s): R45.851 - Suicidal ideations Plan Admit, CV, 15 minute checks Restart regime Diagnostics as needed Collateral contact Cardiology consult-LVH with med non compliance Encourage milieu involvement 11/10/24- Continue treatment Eplerenone reordered from pharmacy for LVH Reason for continued inpatient stay Substantial Risk for: rapid decompensation Time Spent With Patient Time: Total time managing care of this patient today ____ minutes.
--- NOTE | 2024-11-10 15:41 | PM.CNCAR ---
History of Present Illness History of Present Illness Date of Service: 11/10/24 Requesting physician: Adriana Villa Consult reason: other (Cardiomyopathy) Chief complaint: Section 12, SI/HI, hx bipolar Narrative: I was consulted to see Dilip in cardiology consultation today for prior history of cardiomyopathy. Patient admitted with depression with suicide ideation. Patient was prior history of bipolar disorder. He said he let himself go. He was also not getting his eplerenone, , says that he did not pay attention to his medications for about a month and half. He came to the hospital he had significantly elevated blood pressure. He was no overt heart failure symptoms. No orthopnea, PND, leg edema. He was restarted on his metoprolol and lisinopril although I do not see his eplerenone. He was prior history of noncompaction cardiomyopathy and he says that he has LVH. He has been following with dairy clerk Dr. Casas in [place]. He has never had hospitalization for heart failure. Review of Systems Review of Systems: Yes all other systems are reviewed and are negative [facility] Past Medical History Medical History Cannabis use disorder Bipolar disorder LVH (left ventricular hypertrophy) Bipolar 1 disorder Diabetes Social History Social History Household Members: None Housing: Homeless Do you presently have visiting nurse or other home services: No Patient Tobacco Use Status: Current everyday Tobacco user Tobacco use type: Cigarette Cigarette Packs Per Day: 1 Cigarettes Per Day: 20.0 Years Smoked: 23 Smoked in Last 30 Days: Yes e-Cigarette/Vaping Use: Never Used Patient Interested in Nicotine Replacement: Yes Patient Given Instructions on How to Stop Smoking: No Second Hand Smoke Exposure: No Use of substances other than those prescribed or required for medical reasons: Yes Substance Use Type: Marijuana Substance Use Frequency: Daily Last Used Substance: Just Prior to Admission Currently Displaying Signs/Symptoms of Drug Intoxication Withdrawal: No Any prior treatment program specific to substance use: No Have you been hit, kicked, punched, or otherwise hurt by someone within the past year? If so, by whom?: No Do you feel safe in your current relationship?: Yes Is there a partner from a previous relationship who is making you feel unsafe now?: No Are you made to feel afraid or neglected: No Advance Directives: No Advance Directives Information Provided: No Do you have thoughts of harming others: None Do you have a plan to hurt others: No Plan Recently lost weight without trying: No Nutrition Risks: No Nutritional Risk Poor oral hygiene: No Meds Allergies Allergy/AdvReac Type Severity Reaction Status Date / Time No Known Allergies Allergy Verified 11/08/24 13:45 Active Medications: Current Medications Acetaminophen (Acetaminophen 325 Mg Tablet) 650 mg PO Q6H PRN PRN Reason: Headache/Pain, Scale 1-10 Al Hydroxide/Mg Hydroxide (Magnesium Hydrox/Alum Hydrox 30 Ml Oral.Susp) 30 ml PO Q6H PRN PRN Reason: Heartburn/Nausea Atorvastatin Calcium (Atorvastatin Calcium 20 Mg Tablet) 20 mg PO BEDTIME [facility] Last Admin: 11/09/24 21:10 Dose: 20 mg Buspirone HCl (Buspirone Hcl 10 Mg Tablet) 10 mg PO BID [facility] Last Admin: 11/10/24 08:25 Dose: 10 mg Empagliflozin (Empagliflozin 10 Mg Tablet) 10 mg PO DAILY [facility] Last Admin: 11/10/24 08:26 Dose: 10 mg Fluticasone Propionate (Fluticasone Propionate Nasal 16 Gm [place]) 2 spray NOSTRIL-B DAILY PRN PRN Reason: Allergy Symptoms Hydroxyzine HCl (Hydroxyzine Hcl 25 Mg Tablet) 25 mg PO Q6H PRN PRN Reason: mild anxiety Last Admin: 11/08/24 21:26 Dose: 25 mg Lamotrigine (Lamotrigine 100 Mg Tablet) 150 mg PO DAILY [facility] Last Admin: 11/10/24 08:25 Dose: 150 mg Lisinopril (Lisinopril 20 Mg Tablet) 20 mg PO DAILY [facility]; Protocol Last Admin: 11/10/24 08:26 Dose: 20 mg Magnesium Hydroxide (Milk Of Magnesia 30 Ml Oral.Susp) 30 ml PO DAILY PRN PRN Reason: Constipation Metformin HCl (Metformin Hcl 500 Mg Tablet) 500 mg PO BEDTIME [facility] Last Admin: 11/09/24 21:11 Dose: 500 mg Metoprolol Succinate (Metoprolol Succinate Er 25 Mg Tab.Er.24h) 25 mg PO DAILY [facility]; Protocol Last Admin: 11/10/24 08:25 Dose: 25 mg Nicotine (Nicotine 21 Mg Patch.Td24) 21 mg TRANSDERMA DAILY PRN PRN Reason: smoking cessation Last Admin: 11/10/24 09:26 Dose: 21 mg Nicotine Polacrilex (Nicotine Polacrilex 2 Mg Gum) 4 mg BUCCAL Q2H PRN PRN Reason: Nicotine Cravings Dulaglutide 0.75 Mg/ (0.5 Ml) 1 each SUBCUT [facility] Non-Formulary Medication (Eplerenone) 50 mg PO DAILY [facility] Olanzapine (Olanzapine 5 Mg Tablet) 5 mg PO TID PRN PRN Reason: agitation Sertraline HCl (Sertraline Hcl 100 Mg Tablet) 200 mg PO DAILY [facility] Last Admin: 11/10/24 08:25 Dose: 200 mg Trazodone HCl (Trazodone Hcl 50 Mg Tablet) 50 mg PO BEDTIME MRX1 PRN PRN Reason: Insomnia Last Admin: 11/09/24 22:03 Dose: 50 mg Home Medications ?Medication ?Instructions ?Recorded ?Confirmed ?Last Taken ?Type atorvastatin 20 mg tablet 20 mg PO BEDTIME 11/08/24 11/08/24 11/07/24 21:00 History blood sugar diagnostic (Contour 11/08/24 11/08/24 Unknown History Next Test Strips) buspirone 10 mg tablet 10 mg PO BID 11/08/24 11/08/24 11/08/24 09:00 History dapagliflozin propanediol 10 mg 10 mg PO DAILY 11/08/24 11/08/24 11/08/24 09:00 History tablet (Farxiga) dulaglutide 0.75 mg/0.5 mL 0.75 mg subcut QWEEK 11/08/24 11/08/24 11/04/24 History subcutaneous pen injector (Trulicity) eplerenone 50 mg tablet 50 mg PO DAILY 11/08/24 11/08/24 Unknown History fluticasone propionate 50 2 spray intranasal DAILY PRN 11/08/24 11/08/24 Unknown History mcg/actuation nasal Allergy Symptoms spray,suspension lamotrigine 150 mg tablet 150 mg PO DAILY 11/08/24 11/08/24 11/07/24 21:00 History lisinopril 20 mg tablet 20 mg PO DAILY 11/08/24 11/08/24 11/08/24 09:00 History metformin 500 mg tablet 500 mg PO QPM 11/08/24 11/08/24 11/07/24 21:00 History metoprolol succinate 25 mg 25 mg PO QAM 11/08/24 11/08/24 11/08/24 09:00 History tablet,extended release 24 hr nicotine 21 mg/24 hr daily 1 patch topical DAILY 11/08/24 11/08/24 11/08/24 History transdermal patch sertraline 100 mg tablet 200 mg PO DAILY 11/08/24 11/08/24 11/08/24 09:00 History Physical Exam Vital Signs: Vital Signs: Last Vital Signs Temp 98.1 F 11/10/24 07:57 Pulse 71 11/10/24 07:57 Resp 16 11/10/24 07:57 BP 137/90 H 11/10/24 07:57 Pulse Ox 97 11/10/24 07:57 O2 Del Method Room Air 11/10/24 07:57 BMI result Body Mass Index 30.0 Const: General: cooperative, comfortable, no acute distress, alert and awake Nutritional Appearance: overweight Orientation/consciousness: patient oriented x3 Limitations: no limitations HEENT: Head: Yes normocephalic and Yes atraumatic Neck: Neck: Yes trachea midline, Yes supple and Yes no JVD Resp: Effort & Inspection: normal respiratory effort Auscultation: clear to auscultation bilaterally Cardio: Jugular venous distension: no JVD Rate: regular rate Rhythm: regular rhythm Heart sounds: S1 normal heart sound present, S2 normal heart sound present, no click, no gallops, no murmurs and no rubs GI: Auscultation: normal bowel sounds Skin: General skin exam: no rashes or lesions noted Neuro: General: patient oriented x3 and no focal motor deficits Extrem: General: Yes no joint enlargement Objective Labs and Meds 11/08/24 13:56 11/09/24 08:09 Assessment and Plan (1) Nonischemic cardiomyopathy: Status: Acute Patient was prior history of nonischemic cardiomyopathy being followed by an outside cardiology group. Patient recently was not taking his medications. Discussed with him about importance of compliance with medications. He has been restarted on his metoprolol and lisinopril therapy with improvement in his blood pressure control. He should also be restarted on eplerenone therapy which she was taking at 50 mg at outpatient. As he was not been on this drug for a month, he will need a check on his potassium 1 week after initiation. Advised to avoid all toxic agents including marijuana as well as alcohol. He understands agrees. He was showed to me that he would be compliant with his medication. I will sign of the case at this point time. Follow-up with his own Cardiology as outpatient on discharge. Procedures Date of Service Date of Service: 11/10/24
[2024-11-10 20:00] VITALS: BP 141/78; PULSE 73; RESP 18; TEMP 36.6; O2SAT 96
[2024-11-10] MEDS: traZODone HCL 50 MG TABLET PO (20:54)
[2024-11-10] MEDS: metFORMIN HCl 500 MG TABLET PO (20:54)
[2024-11-10] MEDS: Atorvastatin Calcium 20 MG TABLET PO (20:54)
[2024-11-11 07:58] VITALS: BP 161/93; PULSE 68; RESP 16; TEMP 36.6; O2SAT 98
[2024-11-11] MEDS: lamoTRIgine 100 MG TABLET 150 MG PO (08:54)
[2024-11-11] MEDS: busPIRone HCl 10 MG TABLET PO ×2 (08:54→21:26)
[2024-11-11] MEDS: lisinopriL 20 MG TABLET PO (08:55)
[2024-11-11] MEDS: Empagliflozin 10 MG TABLET PO (08:55)
[2024-11-11] MEDS: Nicotine 21 MG PATCH.TD24 TRANSDERMA (08:55)
[2024-11-11] MEDS: Metoprolol Succinate ER 25 MG TAB.ER.24H PO (08:55)
[2024-11-11] MEDS: Sertraline HCL 100 MG TABLET 200 MG PO (08:56)
--- NOTE | 2024-11-11 09:04 | P.PNPSI_ITS ---
Subjective Subjective Date of Service: 11/11/24 Reason For Visit: Section 12, SI/HI, hx bipolar Subjective Notes: Conditional Voluntary Healthcare Proxy: No Guardianship: No Medical Problems Affecting Mental Status: No Interim History: 49 yo reporting he has much more support than he realized- had 3-4 visitors this am- feeling much more hopeful and positive - future oriented looking toward dc plans- Medication Compliance: Yes Side effects from medications: No Attending Groups: Yes Review of Systems Acute medical concerns: No Medical Review of Systems: unchanged Mental Status Exam Mental Status Exam Patient Appearance: Well Grooomed and Appropriate Patient Orientation: Person, Place, Time and Situation Level of Consciousness: Awake Patient Behavior: Appropriate and Cooperative Mood Description: Calm Affect Description: Appropriate Patient Cognition Impaired: No Ability to Follow Directions: Good Speech Pattern: Clear Hallucinations: None Delusions: Not Present Thought Process: Intact and Goal Oriented Judgement: Good Diagnostics Vital Signs (24Hr): Vital Signs - 24 hr 11/10/24 20:00 11/11/24 07:58 Temperature 97.9 F 97.9 F Pulse Rate 73 68 Respiratory Rate 18 16 Blood Pressure 141/78 H 161/93 H Pulse Oximetry 96 98 Oxygen Delivery Method Room Air Room Air BMI result Body Mass Index 30.0 Labs 11/08/24 13:56 11/09/24 08:09 Labs: Laboratory Results - last 48 hr 11/09/24 08:09 Sodium 142 Potassium 4.7 Chloride 105 Carbon Dioxide 29 Anion Gap 13 BUN 18 H Creatinine 0.84 Estim Creat Clear Calc 105.8 Estimated GFR > 60 Random Glucose 92 Estimat Average Glucose 111 Hemoglobin A1c % 5.5 Calcium 10.1 Total Bilirubin 0.5 AST 25 ALT 20 Alkaline Phosphatase 97 Total Protein 7.3 Albumin 4.3 Triglycerides 72 Cholesterol 117 LDL Cholesterol, Calc 62 HDL Cholesterol 41 TSH 1.37 Medications Medications Current Medications Acetaminophen (Acetaminophen 325 Mg Tablet) 650 mg PO Q6H PRN PRN Reason: Headache/Pain, Scale 1-10 Al Hydroxide/Mg Hydroxide (Magnesium Hydrox/Alum Hydrox 30 Ml Oral.Susp) 30 ml PO Q6H PRN PRN Reason: Heartburn/Nausea Atorvastatin Calcium (Atorvastatin Calcium 20 Mg Tablet) 20 mg PO BEDTIME [facility] Last Admin: 11/10/24 20:54 Dose: 20 mg Buspirone HCl (Buspirone Hcl 10 Mg Tablet) 10 mg PO BID [facility] Last Admin: 11/11/24 08:54 Dose: 10 mg Empagliflozin (Empagliflozin 10 Mg Tablet) 10 mg PO DAILY [facility] Last Admin: 11/11/24 08:55 Dose: 10 mg Fluticasone Propionate (Fluticasone Propionate Nasal 16 Gm [place]) 2 spray NOSTRIL-B DAILY PRN PRN Reason: Allergy Symptoms Hydroxyzine HCl (Hydroxyzine Hcl 25 Mg Tablet) 25 mg PO Q6H PRN PRN Reason: mild anxiety Last Admin: 11/08/24 21:26 Dose: 25 mg Lamotrigine (Lamotrigine 100 Mg Tablet) 150 mg PO DAILY [facility] Last Admin: 11/11/24 08:54 Dose: 150 mg Lisinopril (Lisinopril 20 Mg Tablet) 20 mg PO DAILY [facility]; Protocol Last Admin: 11/11/24 08:55 Dose: 20 mg Magnesium Hydroxide (Milk Of Magnesia 30 Ml Oral.Susp) 30 ml PO DAILY PRN PRN Reason: Constipation Metformin HCl (Metformin Hcl 500 Mg Tablet) 500 mg PO BEDTIME [facility] Last Admin: 11/10/24 20:54 Dose: 500 mg Metoprolol Succinate (Metoprolol Succinate Er 25 Mg Tab.Er.24h) 25 mg PO DAILY [facility]; Protocol Last Admin: 11/11/24 08:55 Dose: 25 mg Nicotine (Nicotine 21 Mg Patch.Td24) 21 mg TRANSDERMA DAILY PRN PRN Reason: smoking cessation Last Admin: 11/11/24 08:55 Dose: 21 mg Nicotine Polacrilex (Nicotine Polacrilex 2 Mg Gum) 4 mg BUCCAL Q2H PRN PRN Reason: Nicotine Cravings Dulaglutide 0.75 Mg/ (0.5 Ml) 1 each SUBCUT Mo [facility] Non-Formulary Medication (Eplerenone) 50 mg PO DAILY [facility] Olanzapine (Olanzapine 5 Mg Tablet) 5 mg PO TID PRN PRN Reason: agitation Sertraline HCl (Sertraline Hcl 100 Mg Tablet) 200 mg PO DAILY [facility] Last Admin: 11/11/24 08:56 Dose: 200 mg Trazodone HCl (Trazodone Hcl 50 Mg Tablet) 50 mg PO BEDTIME MRX1 PRN PRN Reason: Insomnia Last Admin: 11/10/24 20:54 Dose: 50 mg Allergies Allergies Allergy/AdvReac Type Severity Reaction Status Date / Time No Known Allergies Allergy Verified 11/08/24 13:45 Assessment & Plan Assessment & Plan (1) Bipolar disorder: Status: Acute Code(s): F31.9 - Bipolar disorder, unspecified (2) Cannabis use disorder: Status: Acute Code(s): F12.90 - Cannabis use, unspecified, uncomplicated (3) Suicidal ideation: Status: Acute Code(s): R45.851 - Suicidal ideations Plan Admit, CV, 15 minute checks Restart regime Diagnostics as needed Collateral contact Cardiology consult-LVH with med non compliance Encourage milieu involvement 11/10/24- Continue treatment Eplerenone reordered from pharmacy for LVH 11/11/24 many visitors today showing support planning for discharge- awaiting LVH med Patient educated on: therapeutic strategies Informed Consent: understands Reason for continued inpatient stay Substantial Risk for: rapid decompensation and med/psych decompensation Time Spent With Patient Time: Total time managing care of this patient today ____ minutes.
[2024-11-11 20:30] VITALS: BP 131/81; PULSE 69; RESP 18; TEMP 36.6; O2SAT 95
[2024-11-11] MEDS: traZODone HCL 50 MG TABLET PO (21:26)
[2024-11-11] MEDS: Atorvastatin Calcium 20 MG TABLET PO (21:26)
[2024-11-11] MEDS: metFORMIN HCl 500 MG TABLET PO (21:26)
[2024-11-12] MEDS: lamoTRIgine 100 MG TABLET 150 MG PO (08:48)
[2024-11-12] MEDS: Empagliflozin 10 MG TABLET PO (08:48)
[2024-11-12] MEDS: lisinopriL 20 MG TABLET PO (08:49)
[2024-11-12] MEDS: Sertraline HCL 100 MG TABLET 200 MG PO (08:49)
[2024-11-12] MEDS: busPIRone HCl 10 MG TABLET PO ×2 (08:49→21:04)
[2024-11-12] MEDS: Metoprolol Succinate ER 25 MG TAB.ER.24H PO (08:49)
[2024-11-12] MEDS: Nicotine 21 MG PATCH.TD24 TRANSDERMA (08:52)
[2024-11-12 09:00] VITALS: BP 162/90; PULSE 67; RESP 18; TEMP 36.4; O2SAT 98
--- NOTE | 2024-11-12 10:50 | P.PNPSI_ITS ---
Subjective Subjective Date of Service: 11/12/24 Reason For Visit: Section 12, SI/HI, hx bipolar Subjective Notes: Conditional Voluntary Healthcare Proxy: No Guardianship: No Medical Problems Affecting Mental Status: No Interim History: 49 yo feeling much more positive about support and dc plan , has list of all the steps he needs to take- will continue to work together with to support son and family- has pending appointment with outpatient therapist tomorrow at 1pm but could reschedule to Wednesday- denies further si, slept ok, no s/e of medications Medication Compliance: Yes Side effects from medications: No Attending Groups: Yes Review of Systems Acute medical concerns: No Medical Review of Systems: unchanged Mental Status Exam Mental Status Exam Patient Appearance: Well Grooomed and Appropriate Patient Orientation: Person, Place, Time and Situation Level of Consciousness: Awake Patient Behavior: Appropriate, Cooperative and Good Eye Contact Mood Description: Calm Affect Description: Appropriate Patient Cognition Impaired: No Ability to Follow Directions: Good Speech Pattern: Clear Hallucinations: None Delusions: Not Present Thought Process: Intact and Goal Oriented Judgement: Good Diagnostics Vital Signs (24Hr): Vital Signs - 24 hr 11/11/24 20:30 11/12/24 09:00 Temperature 97.8 F 97.5 F Pulse Rate 69 67 Respiratory Rate 18 18 Blood Pressure 131/81 162/90 H Pulse Oximetry 95 98 Oxygen Delivery Method Room Air Room Air BMI result Body Mass Index 30.0 Labs 11/08/24 13:56 11/09/24 08:09 Medications Medications Current Medications Acetaminophen (Acetaminophen 325 Mg Tablet) 650 mg PO Q6H PRN PRN Reason: Headache/Pain, Scale 1-10 Al Hydroxide/Mg Hydroxide (Magnesium Hydrox/Alum Hydrox 30 Ml Oral.Susp) 30 ml PO Q6H PRN PRN Reason: Heartburn/Nausea Atorvastatin Calcium (Atorvastatin Calcium 20 Mg Tablet) 20 mg PO BEDTIME [facility] Last Admin: 11/11/24 21:26 Dose: 20 mg Buspirone HCl (Buspirone Hcl 10 Mg Tablet) 10 mg PO BID [facility] Last Admin: 11/12/24 08:49 Dose: 10 mg Empagliflozin (Empagliflozin 10 Mg Tablet) 10 mg PO DAILY [facility] Last Admin: 11/12/24 08:48 Dose: 10 mg Fluticasone Propionate (Fluticasone Propionate Nasal 16 Gm [place]) 2 spray NOSTRIL-B DAILY PRN PRN Reason: Allergy Symptoms Hydroxyzine HCl (Hydroxyzine Hcl 25 Mg Tablet) 25 mg PO Q6H PRN PRN Reason: mild anxiety Last Admin: 11/08/24 21:26 Dose: 25 mg Lamotrigine (Lamotrigine 100 Mg Tablet) 150 mg PO DAILY [facility] Last Admin: 11/12/24 08:48 Dose: 150 mg Lisinopril (Lisinopril 20 Mg Tablet) 20 mg PO DAILY [facility]; Protocol Last Admin: 11/12/24 08:49 Dose: 20 mg Magnesium Hydroxide (Milk Of Magnesia 30 Ml Oral.Susp) 30 ml PO DAILY PRN PRN Reason: Constipation Metformin HCl (Metformin Hcl 500 Mg Tablet) 500 mg PO BEDTIME [facility] Last Admin: 11/11/24 21:26 Dose: 500 mg Metoprolol Succinate (Metoprolol Succinate Er 25 Mg Tab.Er.24h) 25 mg PO DAILY [facility]; Protocol Last Admin: 11/12/24 08:49 Dose: 25 mg Nicotine (Nicotine 21 Mg Patch.Td24) 21 mg TRANSDERMA DAILY PRN PRN Reason: smoking cessation Last Admin: 11/12/24 08:52 Dose: 21 mg Nicotine Polacrilex (Nicotine Polacrilex 2 Mg Gum) 4 mg BUCCAL Q2H PRN PRN Reason: Nicotine Cravings Dulaglutide 0.75 Mg/ (0.5 Ml) 1 each SUBCUT Mo [facility] Non-Formulary Medication (Eplerenone) 50 mg PO DAILY [facility] Olanzapine (Olanzapine 5 Mg Tablet) 5 mg PO TID PRN PRN Reason: agitation Sertraline HCl (Sertraline Hcl 100 Mg Tablet) 200 mg PO DAILY [facility] Last Admin: 11/12/24 08:49 Dose: 200 mg Trazodone HCl (Trazodone Hcl 50 Mg Tablet) 50 mg PO BEDTIME MRX1 PRN PRN Reason: Insomnia Last Admin: 11/11/24 21:26 Dose: 50 mg Allergies Allergies Allergy/AdvReac Type Severity Reaction Status Date / Time No Known Allergies Allergy Verified 11/08/24 13:45 Assessment & Plan Assessment & Plan (1) Bipolar disorder: Status: Acute Code(s): F31.9 - Bipolar disorder, unspecified (2) Cannabis use disorder: Status: Acute Code(s): F12.90 - Cannabis use, unspecified, uncomplicated (3) Suicidal ideation: Status: Acute Code(s): R45.851 - Suicidal ideations Plan Admit, CV, 15 minute checks Restart regime Diagnostics as needed Collateral contact Cardiology consult-[facility] with med non compliance Encourage milieu involvement 11/10/24- Continue treatment Eplerenone reordered from pharmacy for [facility] 11/11/24 many visitors today showing support planning for discharge- awaiting [facility] med 11/12 future oriented- CTP Patient educated on: therapeutic strategies Informed Consent: understands Reason for continued inpatient stay Substantial Risk for: rapid decompensation Time Spent With Patient Time: Total time managing care of this patient today ____ minutes.
[2024-11-12 20:00] VITALS: BP 176/99; PULSE 81; RESP 16; TEMP 37.2; O2SAT 97
[2024-11-12] MEDS: traZODone HCL 50 MG TABLET PO ×2 (21:04→23:42)
[2024-11-12] MEDS: Atorvastatin Calcium 20 MG TABLET PO (21:04)
[2024-11-12] MEDS: metFORMIN HCl 500 MG TABLET PO (21:04)
[2024-11-13 08:00] VITALS: BP 158/105; PULSE 69; RESP 16; TEMP 36.5; O2SAT 97
[2024-11-13] MEDS: [UNRECOGNIZED DRUG - OTHER] 50 EACH PO (08:38)
[2024-11-13] MEDS: Metoprolol Succinate ER 25 MG TAB.ER.24H PO (08:39)
[2024-11-13] MEDS: lamoTRIgine 100 MG TABLET 150 MG PO (08:39)
[2024-11-13] MEDS: busPIRone HCl 10 MG TABLET PO ×2 (08:40→20:33)
[2024-11-13] MEDS: Empagliflozin 10 MG TABLET PO (08:40)
[2024-11-13] MEDS: Sertraline HCL 100 MG TABLET 200 MG PO (08:40)
[2024-11-13] MEDS: Nicotine 21 MG PATCH.TD24 TRANSDERMA (08:40)
[2024-11-13] MEDS: lisinopriL 20 MG TABLET PO (08:40)
[2024-11-13] MEDS: DULAGLUTIDE 0.75 MG/0.5 ML 1 EACH SUBCUT (10:30)
--- NOTE | 2024-11-13 17:21 | P.PNPSI_ITS ---
Subjective Subjective Date of Service: 11/13/24 Reason For Visit: Section 12, SI/HI, hx bipolar Subjective Notes: Conditional Voluntary Healthcare Proxy: No Guardianship: No Medical Problems Affecting Mental Status: No Interim History: Pt prepared to discharge. Reports the weekend was productive as he was able to work out details with family. Discussed cardiology recommendations regarding Eplerenone and having a K+ level after 7 days. Will give pt a lab slip and will order K+ prior to DC. Pt denies SI,HI,AH,VH. No med changes during this admission, only psychosocial problem solving for pt and his family. Medication Compliance: Yes Side effects from medications: No Attending Groups: Intermittent Review of Systems Acute medical concerns: No Review of Systems Review of Systems Denies Mental Status Exam Mental Status Exam Patient Appearance: Appropriate Patient Orientation: Person, Place, Time and Situation Level of Consciousness: Alert Patient Behavior: Talkative and Good Eye Contact Mood Description: Appropriate Affect Description: Appropriate Patient Cognition Impaired: No Ability to Follow Directions: Good Speech Pattern: Spontaneous Speech Memory Description: Intact Hallucinations: None Delusions: Not Present Thought Process: Intact and Goal Oriented Thought Content: positive for Intact and positive for Goal Oriented Depressive Symptoms: Low Self Esteem Judgement: Good Diagnostics Vital Signs (24Hr): Vital Signs - 24 hr 11/12/24 20:00 11/13/24 08:00 Temperature 98.9 F 97.7 F Pulse Rate 81 69 Respiratory Rate 16 16 Blood Pressure 176/99 H 158/105 H Pulse Oximetry 97 97 Oxygen Delivery Method Room Air Room Air BMI result Body Mass Index 30.0 Labs 11/08/24 13:56 11/14/24 08:13 Medications Medications Current Medications Acetaminophen (Acetaminophen 325 Mg Tablet) 650 mg PO Q6H PRN PRN Reason: Headache/Pain, Scale 1-10 Al Hydroxide/Mg Hydroxide (Magnesium Hydrox/Alum Hydrox 30 Ml Oral.Susp) 30 ml PO Q6H PRN PRN Reason: Heartburn/Nausea Atorvastatin Calcium (Atorvastatin Calcium 20 Mg Tablet) 20 mg PO BEDTIME [facility] Last Admin: 11/12/24 21:04 Dose: 20 mg Buspirone HCl (Buspirone Hcl 10 Mg Tablet) 10 mg PO BID [facility] Last Admin: 11/13/24 08:40 Dose: 10 mg Empagliflozin (Empagliflozin 10 Mg Tablet) 10 mg PO DAILY [facility] Last Admin: 11/13/24 08:40 Dose: 10 mg Fluticasone Propionate (Fluticasone Propionate Nasal 16 Gm [place]) 2 spray NOSTRIL-B DAILY PRN PRN Reason: Allergy Symptoms Hydroxyzine HCl (Hydroxyzine Hcl 25 Mg Tablet) 25 mg PO Q6H PRN PRN Reason: mild anxiety Last Admin: 11/08/24 21:26 Dose: 25 mg Lamotrigine (Lamotrigine 100 Mg Tablet) 150 mg PO DAILY [facility] Last Admin: 11/13/24 08:39 Dose: 150 mg Lisinopril (Lisinopril 20 Mg Tablet) 20 mg PO DAILY [facility]; Protocol Last Admin: 11/13/24 08:40 Dose: 20 mg Magnesium Hydroxide (Milk Of Magnesia 30 Ml Oral.Susp) 30 ml PO DAILY PRN PRN Reason: Constipation Metformin HCl (Metformin Hcl 500 Mg Tablet) 500 mg PO BEDTIME [facility] Last Admin: 11/12/24 21:04 Dose: 500 mg Metoprolol Succinate (Metoprolol Succinate Er 25 Mg Tab.Er.24h) 25 mg PO DAILY [facility]; Protocol Last Admin: 11/13/24 08:39 Dose: 25 mg Nicotine (Nicotine 21 Mg Patch.Td24) 21 mg TRANSDERMA DAILY PRN PRN Reason: smoking cessation Last Admin: 11/13/24 08:40 Dose: 21 mg Nicotine Polacrilex (Nicotine Polacrilex 2 Mg Gum) 4 mg BUCCAL Q2H PRN PRN Reason: Nicotine Cravings Dulaglutide 0.75 Mg/ (0.5 Ml) 1 each SUBCUT Mo [facility] Last Admin: 11/13/24 10:30 Dose: 1 each Pat Own Med ( (Eplerenone 50 Mg)) 50 mg PO DAILY [facility] Last Admin: 11/13/24 08:38 Dose: 50 mg Olanzapine (Olanzapine 5 Mg Tablet) 5 mg PO TID PRN PRN Reason: agitation Sertraline HCl (Sertraline Hcl 100 Mg Tablet) 200 mg PO DAILY [facility] Last Admin: 11/13/24 08:40 Dose: 200 mg Trazodone HCl (Trazodone Hcl 50 Mg Tablet) 50 mg PO BEDTIME MRX1 PRN PRN Reason: Insomnia Last Admin: 11/12/24 23:42 Dose: 50 mg Allergies Allergies Allergy/AdvReac Type Severity Reaction Status Date / Time No Known Allergies Allergy Verified 11/08/24 13:45 Assessment & Plan Assessment & Plan (1) Bipolar disorder: Status: Acute Code(s): F31.9 - Bipolar disorder, unspecified (2) Cannabis use disorder: Status: Acute Code(s): F12.90 - Cannabis use, unspecified, uncomplicated (3) Suicidal ideation: Status: Acute Code(s): R45.851 - Suicidal ideations Plan Admit, CV, 15 minute checks Restart regime Diagnostics as needed Collateral contact Cardiology consult-[facility] with med non compliance Encourage milieu involvement 11/10/24- Continue treatment Eplerenone reordered from pharmacy for [facility] 11/11/24 many visitors today showing support planning for discharge- awaiting [facility] med 11/12 future oriented- CTP 11/13 DC 11/14/24 K+ 11/14/24 and on 11/20 to assess tolerance of Eplerenone Reason for continued inpatient stay Substantial Risk for: rapid decompensation Time Spent With Patient Time: Total time managing care of this patient today ____ minutes.
[2024-11-13 19:56] VITALS: BP 134/84; PULSE 77; RESP 16; TEMP 36.2; O2SAT 96
[2024-11-13] MEDS: traZODone HCL 50 MG TABLET PO ×2 (20:33→22:53)
[2024-11-13] MEDS: Atorvastatin Calcium 20 MG TABLET PO (20:33)
[2024-11-13] MEDS: metFORMIN HCl 500 MG TABLET PO (20:33)
[2024-11-14 07:56] VITALS: BP 126/78; PULSE 64; TEMP 36.7; O2SAT 96
[2024-11-14] MEDS: lamoTRIgine 100 MG TABLET 150 MG PO (08:05)
[2024-11-14] MEDS: [UNRECOGNIZED DRUG - OTHER] 50 EACH PO (08:05)
[2024-11-14] MEDS: Sertraline HCL 100 MG TABLET 200 MG PO (08:05)
[2024-11-14] MEDS: Metoprolol Succinate ER 25 MG TAB.ER.24H PO (08:06)
[2024-11-14] MEDS: Empagliflozin 10 MG TABLET PO (08:06)
[2024-11-14] MEDS: lisinopriL 20 MG TABLET PO (08:06)
[2024-11-14] MEDS: busPIRone HCl 10 MG TABLET PO (08:07)
[2024-11-14 08:45] LABS: Potassium 4.7 mmol/L (3.3-5.1)
[2024-11-14] MEDS: Nicotine 21 MG PATCH.TD24 TRANSDERMA (10:15)
--- NOTE | 2024-11-14 11:00 | PM.PSYDC ---
DS: Providers Provider Date of admission: 11/08/24 19:22 Primary care physician: Rita Tanner DO Consults: 11/09/24 20:37 Consult to Cardiology Routine Consulting Provider: [facility] Reason for consultation: [facility]- non compliant with medicines prior to admit Has provider been notified: No DS: Diagnosis Discharge Diagnosis (1) Bipolar disorder: Status: Acute (2) Cannabis use disorder: Status: Acute (3) Suicidal ideation: Status: Acute DS: Medications Discharge Medications Home Medications: Home Medications ?Medication ?Instructions ?Recorded ?Confirmed atorvastatin 20 mg tablet 20 mg PO BEDTIME 11/08/24 11/08/24 blood sugar diagnostic (Contour 11/08/24 11/08/24 Next Test Strips) buspirone 10 mg tablet 10 mg PO BID 11/08/24 11/08/24 dapagliflozin propanediol 10 mg 10 mg PO DAILY 11/08/24 11/08/24 tablet (Farxiga) dulaglutide 0.75 mg/0.5 mL 0.75 mg subcut QWEEK 11/08/24 11/08/24 subcutaneous [facility] eplerenone 50 mg tablet 50 mg PO DAILY 11/08/24 11/08/24 fluticasone propionate 50 2 spray intranasal DAILY PRN 11/08/24 11/08/24 mcg/actuation nasal Allergy Symptoms spray,suspension lamotrigine 150 mg tablet 150 mg PO DAILY 11/08/24 11/08/24 lisinopril 20 mg tablet 20 mg PO DAILY 11/08/24 11/08/24 metformin 500 mg tablet 500 mg PO QPM 11/08/24 11/08/24 metoprolol succinate 25 mg 25 mg PO QAM 11/08/24 11/08/24 tablet,extended release 24 hr nicotine 21 mg/24 hr daily 1 patch topical DAILY 11/08/24 11/08/24 transdermal patch sertraline 100 mg tablet 200 mg PO DAILY 11/08/24 11/08/24 Previous Rx's ?Medication ?Instructions ?Recorded trazodone 50 mg tablet 50 mg PO BEDTIME MRX1 PRN Insomnia 11/13/24 #60 tabs Data Data Completed and Pending Completed studies during hospitalization [Text1]: 11/08/24 11/08/24 11/09/24 13:56 14:02 08:09 WBC 13.9 H RBC 5.66 Hgb 16.8 Hct 49.1 MCV 86.7 MCH 29.7 MCHC 34.2 RDW 13.3 Plt Count 223 MPV 8.9 L Immature Gran % (Auto) 0.6 H Neut % (Auto) 70.0 Lymph % (Auto) 20.3 [place] % (Auto) 5.8 Eos % (Auto) 2.9 Baso % (Auto) 0.4 Lymph # (Auto) 2.8 [place] # (Auto) 0.8 Eos # (Auto) 0.4 Baso # (Auto) 0.1 Abs Immat Gran (auto) 0.08 H Absolute Neuts (auto) 9.7 H Absolute Nucleated RBC 0.000 Nucleated RBC % (auto) 0.0 Sodium 139 142 Potassium 4.1 4.7 Chloride 104 105 Carbon Dioxide 28 29 Anion Gap 11 L 13 BUN 22 H 18 H Creatinine 0.89 0.84 Estim Creat Clear Calc 99.8 105.8 Estimated GFR > 60 > 60 Random Glucose 126 H 92 Estimat Average Glucose 111 Hemoglobin A1c % 5.5 Calcium 9.9 10.1 Magnesium 2.0 Total Bilirubin 0.5 0.5 Direct Bilirubin 0.2 AST 22 25 ALT 17 20 Alkaline Phosphatase 98 97 Total Protein 7.4 7.3 Albumin 4.4 4.3 Triglycerides 72 Cholesterol 117 LDL Cholesterol, Calc 62 HDL Cholesterol 41 TSH 1.37 Urine Color Yellow Urine Appearance Clear Urine pH 5.5 Ur Specific [place] 1.025 Urine Protein 30 (1+) H Urine Glucose (UA) >=1000 H Urine Ketones Negative Urine Blood Negative Urine Nitrite Negative Ur Leukocyte Esterase Negative Urine RBC 0-2 Urine WBC 0-5 Ur Squamous Epith Cells 0-2 Urine Bacteria None Seen Hyaline Casts 0-2 Urine Opiates Screen Not Detected Ur Buprenorphine Scrn Not Detected Ur Oxycodone Screen Not Detected Urine Methadone Screen Not Detected Urine Fentanyl Screen Not Detected Ur Barbiturates Screen Not Detected Ur Phencyclidine Scrn Not Detected Ur Amphetamines Screen Not Detected U Benzodiazepines Scrn Not Detected Urine Cocaine Screen Not Detected U Marijuana (THC) Screen POSITIVE H Ethyl Alcohol < 10 11/14/24 08:13 WBC RBC Hgb Hct MCV MCH MCHC RDW Plt Count MPV Immature Gran % (Auto) Neut % (Auto) Lymph % (Auto) [place] % (Auto) Eos % (Auto) Baso % (Auto) Lymph # (Auto) [place] # (Auto) Eos # (Auto) Baso # (Auto) Abs Immat Gran (auto) Absolute Neuts (auto) Absolute Nucleated RBC Nucleated RBC % (auto) Sodium Potassium 4.7 Chloride Carbon Dioxide Anion Gap BUN Creatinine Estim Creat Clear Calc Estimated GFR Random Glucose Estimat Average Glucose Hemoglobin A1c % Calcium Magnesium Total Bilirubin Direct Bilirubin AST ALT Alkaline Phosphatase Total Protein Albumin Triglycerides Cholesterol LDL Cholesterol, Calc HDL Cholesterol TSH Urine Color Urine Appearance Urine pH Ur Specific [place] Urine Protein Urine Glucose (UA) Urine Ketones Urine Blood Urine Nitrite Ur Leukocyte Esterase Urine RBC Urine WBC Ur Squamous Epith Cells Urine Bacteria Hyaline Casts Urine Opiates Screen Ur Buprenorphine Scrn Ur Oxycodone Screen Urine Methadone Screen Urine Fentanyl Screen Ur Barbiturates Screen Ur Phencyclidine Scrn Ur Amphetamines Screen U Benzodiazepines Scrn Urine Cocaine Screen U Marijuana (THC) Screen Ethyl Alcohol DS: Summary Time Spent with Patient Time attestation: Total time managing care of this patient today ____ minutes. Discharge Plan Discharge Anticipated Discharge Date/Time: 11/14/24 12:00 Patient Disposition: Home, Self-Care Discharge Diagnosis: Bipolar Disorder Cannabis Use Disorder Cardiomyopathy Referrals: Medication Provider Tonya Abreu APRN [Other] - 11/17/24 2:00 pm [facility] Crisis Stabilization (CCS) [Other] - 3-5 Days (This was the 3-5 day respite we talked about when you are feeling you need a mental health break. [place] in [place], provides: An outpatient behavioral health clinic 08/03 mobile crisis services Crisis stabilization for youth and adults in person and via telehealth) Rita Tanner DO [Primary Care Provider] - 1 Week Discharge Medications: New trazodone 50 mg Tablet 50 mg PO BEDTIME MRX1 PRN (Reason: Insomnia) Qty: 60 0RF Continued lamotrigine 150 mg tablet 150 mg PO DAILY metformin 500 mg tablet 500 mg PO QPM atorvastatin 20 mg tablet 20 mg PO BEDTIME lisinopril 20 mg tablet 20 mg PO DAILY sertraline 100 mg tablet 200 mg PO DAILY (DME) Contour Next Test Strips Strip MISCELLANEOUS BID buspirone 10 mg tablet 10 mg PO BID nicotine 21 mg/24 hr patch 24 hour 1 patch topical DAILY metoprolol succinate 25 mg tablet extended release 24 hr 25 mg PO QAM Patient Comments: Stated that he's supposed to take 50mg daily, but hasn't been prescribed that dose yet. Stated that he's been taking 50mg. fluticasone propionate 50 mcg/actuation spray,suspension 2 spray intranasal DAILY PRN (Reason: Allergy Symptoms) eplerenone 50 mg tablet 50 mg PO DAILY Patient Comments: last pickup from pharmacy - 08/27/24. Patient stated yeah I think I'm supposed to still be taking that. I was dealing with that . dapagliflozin propanediol [Farxiga] 10 mg tablet 10 mg PO DAILY Trulicity 0.75 mg/0.5 mL pen injector 0.75 mg subcut QWEEK Patient Comments: Takes Trulicity weekly on Wednesday. Discharge Orders: Discharge Order (Routine); Ordered 11/14/24 Ordered By: Adriana Villa Diet: Advance to usual diet Activity on Discharge: As tolerated Stand Alone Forms: Patient Portal Discharge page, Community Support Print Language: Unable To Collect Care Plan Goals: Abstinence from Cannabis Mood and Behavioral Stabilization Health Concerns: Abstinence from Cannabis Mood and Behavioral Stabilization Plan of Treatment: Take medications as directed Attend scheduled appointments. You are due for a potassium level on 11/20/24. We will give you an outpatient lab slip. This level is due to your re-starting Eplerenone Assessment: Nateies SI,HI,AH,VH No sx of acute naya or psychosis Agrees with plan of care Has several supports in place to assist in his return to the community. Discharge Date/Time: 11/14/24 10:35
== END 2024-11-14 10:35 | disposition home or self-care (01) | DRG 753 ==
LOC: HO.ED 14:07 → HO.PM5 19:36
PROVIDERS: Admitting Provider Psychiatry & Neurology Psychiatry; Emergency Provider Emergency Medicine; PCP Internal Medicine; Visit Provider Clinical Nurse Specialist Psychiatric/Mental Health, Adult
DX: F31.9 Bipolar disorder, unspecified (principal); I42.8 Other cardiomyopathies; R45.851 Suicidal ideations; F17.210 Nicotine dependence, cigarettes, uncomplicated; F12.90 Cannabis use, unspecified, uncomplicated; Z71.6 Tobacco abuse counseling; Z59.811 Housing instability, housed, with risk of homelessness; Z79.51 Long term (current) use of inhaled steroids; Z79.84 Long term (current) use of oral hypoglycemic drugs; Z79.85 Long-term (current) use of injectable non-insulin antidiabetic drugs; Z79.899 Other long term (current) drug therapy
CPT/HCPCS: 36415; 80048; 80053; 80061; 80076; 80307; 81001; 83036; 83735; 84132; 84443; 85025; 93005; 99285

== ENCOUNTER → 2024-11-08 13:47 | Outpatient (BNV) | payer OTHER, SELFPAY | PROVIDERS: Admitting Provider Psychiatry & Neurology Psychiatry; Emergency Provider Emergency Medicine; PCP Internal Medicine; Visit Provider Internal Medicine Cardiovascular Disease | DX: I44.0 Atrioventricular block, first degree (principal); I51.7 Cardiomegaly | CPT/HCPCS: 93010 ==

== ENCOUNTER → 2024-11-08 19:22 | Outpatient (BNV) | payer OTHER, SELFPAY | PROVIDERS: Admitting Provider Psychiatry & Neurology Psychiatry; Emergency Provider Emergency Medicine; PCP Internal Medicine; Visit Provider Internal Medicine Cardiovascular Disease | DX: I42.8 Other cardiomyopathies (principal) | CPT/HCPCS: 99222 ==

== ENCOUNTER → 2024-11-08 19:22 | Outpatient (BNV) | payer OTHER, SELFPAY | PROVIDERS: Admitting Provider Psychiatry & Neurology Psychiatry; Emergency Provider Emergency Medicine; PCP Internal Medicine; Visit Provider Clinical Nurse Specialist Psychiatric/Mental Health, Adult | DX: F31.9 Bipolar disorder, unspecified (principal); F12.90 Cannabis use, unspecified, uncomplicated; R45.851 Suicidal ideations | CPT/HCPCS: 90792; 99232 ==

== ENCOUNTER 2024-11-20 15:37 | Outpatient (REF) | payer OTHER, SELFPAY ==
[2024-11-20 16:56] LABS: Potassium 4.6 mmol/L (3.3-5.1)
--- OUTSIDE RECORDS SUMMARY | 2024-11-20 18:24 | XMS_ITS | Data Portability ---
Author Organization [place] - [facility], Allergy Address [address] [address] Care Team Providers Care Professional Skater Name Role Phone PO ALANIZ Primary Care Provider Assessment Encounter Date Assessment Date Assessment LastModified by Organization Details LastModified Time 07/11/2024 07/11/2024 Patient with history of right sided deafness since toddler [place] presents for evaluation of diminished hearing in the left ear, gradual over the past year or more. Physical exam reveals intact tympanic membranes with well aerated middle ear space bilaterally. Audiometric testing demonstrates profound hearing loss on the right and moderate neurosensory hearing loss on the left. Recommend hearing protection at work. Recommend MRI of brain and internal auditory canal; rationale reviewed and patient is agreeable. Recommend left hearing aid or BiCros system; benefits reviewed and patient understands. Medical clearance form provided for patient to take back to [facility]. Recommend annual audiometric testing, sooner with perceived change. Case discussed with Dr. Bora [email or web address] Not available 07/11/2024 11:09:37 Plan of Treatment Reminders Order Date Submit Date Provider Last Modified By Organization Details Last Modified Time Details Appointments None recorded. Lab None recorded. Referral None recorded. Procedures None recorded. Surgeries None recorded. Imaging MRI, brain + internal auditory canal, w/wo contrast - asymmetric hearing loss since childhood 2023 024 [email or web address] [facility]), [address] [facility], [place], [address], 5 15:13:57 Medication Orders None recorded. Patient TargetsNo targets recorded. Patient InstructionsNo instructions recorded. Reason for Referral None Reported. Results Created Date Observation Date Name Description Value Unit Range Abnormal Flag Note LastModifiedBy Organization Detail LastModifiedTime 08/04/20 24 08/01/2024 MRI, brain + inter nal audit ory canal , w/wo contr ast No observ ation record ed. [email or web address] [address], [address], 08/31/2024 15:37:58 Result Notes None recorded. Problems Name Problem SNOMED Code Status Onset Date Resolution Date Notes Provider Name and Address Organization Details Recorded Time Sensorineur al hearing loss of bilateral ears 091160574 Active 2023 CASANDRA BUCKNER [employer],[place] [address], [place], [address], [facility] - [facility] 4 11:08:51 Tinnitus of left ear [id number] Active 2023 CASANDRA [employer] [address] [place] [address] [address], [place], [address], [facility] 4 11:08:55 Problem Notes None recorded. Procedures Surgical History None recorded. Imaging Results Imaging Date Name Status LastModified by Organiz ation Details LastModified Time 08/01/2024 MRI, brain + internal auditory canal, w/wo contrast [email or web address] [address], [address], 08/31/2024 15:37:58 Procedure Notes None recorded. Medical Equipment None Reported. Medications Name Sig Start Date Stop Date Status Note LastModified by Organization Details LastModified Time lamotrigine 150 mg tablet TAKE ONE TABLET BY MOUTH EVERY DAY AT BEDTIME active Not Available Not Available N ot Available atorvastatin 20 mg tablet TAKE ONE TABLET BY MOUTH AT BEDTIME active Not Available Not Available No t Available cetirizine 10 mg tablet TAKE 1 TABLET BY MOUTH ONCE DAILY NEEDED FOR ALLERGY SYMPTOMS. active Not Available Not Available No t Available lisinopril 20 mg tablet TAKE ONE TABLET BY MOUTH EVERY DAY active Not Available Not Available No t Available sertraline 100 mg tablet TAKE TWO TABLETS BY MOUTH ONCE EVERY DAY active Not Available Not Available No t Available tamsulosin 0.4 mg capsule TAKE ONE CAPSULE BY MOUTH AT BEDTIME active Not Available Not Available No t Available metformin 1,000 mg tablet TAKE ONE TABLET BY MOUTH TWICE A DAY active Not Available Not Available No t Available buspirone 10 mg tablet TAKE ONE TABLET BY MOUTH TWICE A DAY active Not Available Not Available No t Available lisinopril 10 mg tablet TAKE ONE TABLET BY MOUTH EVERY DAY . REPLACES 5MG) active Not Available Not Available No t Available polymyxin B sulfate 10,000 unit-trimetho prim 1 mg/mL eye drops INSTILL ONE DROP TO THE AFFECTED EYE S) FOUR TIMES A DAY FOR 7 DAYS active Not Available Not Available No t Available nicotine 21 mg/24 hr daily transdermal patch APPLY 1 PATCH TOPICALLY TO CLEAN, DRY SKIN ONCE DAILY. REMOVE OLD PATCH BEFORE APPLYING A NEW ONE active Not Available Not Available No t Available omeprazole 20 mg capsule,delay ed release TAKE ONE CAPSULE BY MOUTH EVERY DAY active Not Available Not Available No t Available metoprolol succinate ER 25 mg tablet,extend ed release 24 hr TAKE ONE TABLET BY MOUTH ONCE DAILY active Not Available Not Available No t Available eplerenone 50 mg tablet TAKE ONE TABLET BY MOUTH EVERY DAY active Not Available Not Available No t Available varenicline tartrate 1 mg tablet TAKE ONE TABLET BY MOUTH TWO TIMES A DAY FOR 12 WEEKS AFTER STARTER PACK active Not Available Not Available No t Available varenicline tartrate 0.5 mg (11)-1 mg (42) tablets in a dose pack TAKE DIRECTED active Not Available Not Available No t Available GaviLyte-G 236 gram-22.74 gram-6.74 gram-5.86 gram oral solution TAKE 8 OUNCES BY MOUTH DIRECTED. DRINK A GLASS EVERY 10-15 MINUTES active Not Available Not Available No t Available Contour Next Test Strips USE TO CHECK BLOOD SUGARS TWICE A DAY active Not Available Not Available No t Available Farxiga 10 mg tablet TAKE ONE TABLET BY MOUTH EVERY DAY active Not Available Not Available No t Available Trulicity 0.75 mg/0.5 mL subcutaneous pen injector INJECT 0.5 ML UNDER THE SKIN ONCE A WEEK active Not Available Not Available No t Available Paxlovid 300 mg (150 mg x 2)-100 mg tablets in a dose pack TAKE 3 TABLETS BY MOUTH TWO TIMES A DAY FOR 5 DAYS active Not Available Not Available No t Available Vitals None Recorded Social History None recorded. Functional Status None recorded. Mental Status None recorded. Family History Nothing Reported. Medical History No medical history recorded. Past Encounters Encounter ID Performer Location Encounter Start Date Encounter Closed Date Diagnosis/Indication Diagnosis SNOMED-CT Code Diagnosis ICD10 Code Diagnosis Note [id number] CASANDRA BUCKNER PA-C [facility] [address] [place] [address] 07/11/2024 09:27:21 07/11/2024 10:39:05 Sensorineural hearing loss of bilateral ears [id number] H90.3 Tinnitus of left ear 755 [id number] 106 H93.12 Health Concerns Section Related Observation LastModified by Organization Detai ls LastModified Time None Recorded Concern Status LastModified by Organization Details LastModified Time None Recorded Advance Directives Directive None Recorded Payers Encounter Date Sequence Insurance Name Policy Number Policy Chew Covered Member ID Chew Member ID Guarantor Name 07/11/2024 1 [employer]: [employer] ([place] [id number] Dilip Markham [id number] Dilip Markham Notes Date Note Type Note Provider Name and Address Organization Details Recorded Time 07/11/2024 text/html Patient comes in for evaluation of ears and hearing. Patient reports a history of deafness on the right side. He previously thought he had been born without hearing on that side but was recently told by a parent that he had an ear infection in toddlerhood that resulted in deafness on that side. More recently has been noticing difficulty hearing from the left ear in a variety of listening environments, {{notably worse* not worse}} in background noise. Hearing loss has been {{gradual* rapidly progressive}} over the last few years. Patient notes {{no tinnitus tinnitus* }} {{localized to the right ear localized to the left ear* nonlocalizing in either ear}}, the onset of which {{preceded* follow ed was simultaneous with}} the left sided hearing change. It is intermittent, nonpulsatile, and well tolerated. Patient {{endorses denies* }} otalgia, {{endorses denies* }} otorrhea, and {{endorses denies* }} vertigo. There {{is* is not}} a history of recurrent otitis, most recently 10+ years ago, and patient {{has has never*}} undergone otologic surgery. He has a history of unprotected occupational noise exposure. CASANDRA BUCKNER PA-C [address] [address], [place], [address], [place] - [facility] 07/11/2024 11:09:53
--- OUTSIDE RECORDS SUMMARY | 2024-11-20 18:24 | XMS_ITS | Encounter Summary ---
Author Organization [facility] Address [address] [place] [address] Care Team Providers Care Senior Cobol Developer Name Role Phone Name, Emre LOBATO Primary Care Provider [phone] Encounter Details Date Type Department Care Team (Late st Contact Info) Description 06/27/[address] [facility] - Main Lab [address] [place] [id number] Tonya Chun MD [address] [facility] [address] [place] [address] Encounter for screening for malignant neoplasm of colon Social History Tobacco Use Types Packs/Day Years Used Date Smoking Tobacco: Every Day Cigarettes Alcohol Use Standard Drinks/Week Comments No 0 (1 standard drink = 0.6 oz pur e alcohol) Sex and Gender Information Value Date Recorded Sex Assigned at Not on file Legal Sex Male 12:29 AM EST Gender Identity Not on file Sexual Orientation Not on file documented as of this encounter Plan of Treatment Not on file documented as of this encounter Procedures Procedure Name Priority Date/Time Associated Diagnosis Comments TISSUE EXAM Routine 06/26/2024 Encounter for screening for malignant neoplasm of colon documented in this encounter Results * Tissue Exam (06/26/2024) Final Diagnosis A. Small Intestine, Duodenum, biopsy: - Duodenal mucosa with preserved villi and no specific pathologic changes. - Negative for increased intraepithelial lymphocytes. B. Stomach, body biopsy: - Gastric antral and oxyntic mucosa with no specific pathologic changes. - No Helicobacter pylori organisms are morphologically identified. C. Esophagus, biopsy: - Esophageal squamous mucosa with rare intraepithelial eosinophils (up to 2 eosinophils per hpf). D. Colon, sigmoid polyps x2, biopsy: - Tubular adenomas x2. E. Colon, transverse polyp: - Tubular adenoma. 06/28/2024 9:04 AM [facility] Clinical Information Nausea with vomiting, weight loss 06/28/2024 9:04 AM [facility] Gross Description A. Small Intestine, Duodenum, biopsy: Labeled duodenum biopsy . Received in formalin are four soft, pittman tissue fragments, each measuring approximately 0.2 cm in greatest diameters, which are wrapped in paper and submitted in toto in one cassette, four pieces, multiple levels on one slide. B. Stomach, body biopsy: Labeled stomach body biopsy . Received in formalin are four soft, pittman tissue fragments, each measuring approximately 0.2 cm in greatest diameters, which are wrapped in paper and submitted in toto in one cassette, four pieces, multiple levels on one slide. C. Esophagus, biopsy: Labeled esophagus biopsy . Received in formalin are five soft, pittman tissue fragments, ranging from 0.2 cm to 0.5 cm in greatest diameters, which are wrapped in paper and submitted in toto in one cassette, five pieces, multiple levels on one slide. D. Colon, Sigmoid polyp x2: Labeled sigmoid colon polyp x2 . Received in formalin are two soft, pittman tissue fragments, measuring 0.3 cm and 0.5 cm in greatest diameters, which are wrapped in paper and submitted in toto in one cassette, two pieces, multiple levels on one slide. E. Colon, transverse polyp: Labeled transverse colon polyp . Received in formalin is a 0.4 cm in greatest diameter soft, pittman tissue fragment, which is wrapped in paper and submitted in toto in one cassette, one piece, multiple levels on one slide. JUSTICE 06/28/2024 9:04 AM [facility] Disclaimer Unless otherwise specified, all tissue is 10% NB formalin fixed and paraffin embedded. 06/28/2024 9:04 AM [facility] Tissue Duodenal structure / Unknown 06/26/2024 06/27/2024 5:42 AM EST Tissue specimen (specimen) Stomach structure / Unknown 06/26/2024 06/27/2024 5:42 AM EST Tissue specimen (specimen) Esophageal structure / Unknown 06/26/2024 06/27/2024 5:42 AM EST Tissue specimen (specimen) Colon structure / Unknown 06/26/2024 06/27/2024 5:42 AM EST Tissue specimen (specimen) Colon structure / Unknown 06/26/2024 06/27/2024 5:42 AM EST us Tonya Chun MD LAB PATHOLOGY ORDERABLES Final Result [facility] ([facility] [address] [place] [address], documented in this encounter Visit Diagnoses Diagnosis Encounter for screening for malignant neoplasm of colon documented in this encounter Care Teams Senior Cobol Developer Relationship Specialty Start Date End Date Name, MD Emre [address] [place] [id number] PCP - General Internal Medicine 06/07/24 [facility] [address] [place] [address] Consulting Physician Cardiology 07/10/24 documented as of this encounter
--- OUTSIDE RECORDS SUMMARY | 2024-11-20 18:24 | XMS_ITS | Clinical Summary ---
Author Organization LL [address] [place] [address] [place] [address] Phone Care Team Providers Care Systems Tester Name Role Phone Name, Emre LOBATO Primary Care Provider [phone] Allergies No known active allergies Medications buPROPion (ZYBAN) 150 mg 12 hr tablet Take 1 tablet (150 mg total) by mouth 2 (two) times a day. Active sertraline (ZOLOFT) 100 mg tablet 07/09/2024 Active metoprolol succinate (TOPROL-XL) 25 mg 24 hr tablet Take 1 tablet (25 mg total) by mouth 1 (one) time each day. 06/21/2024 Active metFORMIN (GLUCOPHAGE) 1,000 mg tablet Take 1 tablet (1,000 mg total) by mouth 1 (one) time each day with breakfast. 07/06/2024 Active lisinopriL (PRINIVIL,ZESTR IL) 20 mg tablet Take 1 tablet (20 mg total) by mouth 1 (one) time each day. 06/21/2024 Active lamoTRIgine (LaMICtal) 150 mg tablet Take 1 tablet (150 mg total) by mouth. at bedtime 05/15/2024 Active Trulicity 0.75 mg/0.5 mL pen injector injection INJECT 0.5 ML UNDER THE SKIN ONCE A WEEK 07/01/2024 Active Farxiga 10 mg tablet Take 1 tablet (10 mg total) by mouth 1 (one) time each day. 06/21/2024 Active cetirizine (ZyrTEC) 10 mg tablet TAKE 1 TABLET BY MOUTH ONCE DAILY NEEDED FOR ALLERGY SYMPTOMS. 08/02/2023 Active busPIRone (BUSPAR) 10 mg tablet Take 1 tablet (10 mg total) by mouth 2 (two) times a day. 05/15/2024 Active atorvastatin (LIPITOR) 20 mg tablet Take 1 tablet (20 mg total) by mouth. at bedtime 06/21/2024 Active eplerenone (INSPRA) 50 mg tablet Take 1 tablet (50 mg total) by mouth 1 (one) time each day. Active Active Problems Problem Noted Date Diagnosed Date Lumbago Dysuria Suprapubic pain Obesity Tobacco use disorder Known medical problems Overview (06/07/2024): UNDIAGNOSED CARDIAC MURMURS, since , asymptomatic Hearing loss, conductive, inner ear Overview (06/07/2024): CONDUCTIVE HEARING LOSS, INNER EAR, congenital right ear Other hyperlipidemia Overview (06/07/2024): Other and unspecified hyperlipidemia Encounters Date Type Department Care Team Description 11/11/2024 - 11/11/2024 8:11 AM EDT Emergency [facility] Emergency [address] [place] [address] Discharge Disposition: ED Dismiss - Never Arrived from Last 3 Months Immunizations Name Administration Dates Next Due Td Tetanus diptheria (Tdvax) 7yo and older 09/06 Surgical History Surgery Date Site/Laterality Comments CYST REMOVAL PROCEDURE: [place] EXCISION PILONIDAL CYST/SINUS SIMPLE COLONOSCOPY 06/26/2024 3 polyps, repeat in 5 years ESOPHAGOGASTRODUODENOSCOPY 06/26/2024 negative bx Medical History Medical History Date Comments Obesity, unspecified 08/26/2006 DX:Obesity, unspecified Tobacco use disorder 08/26/2006 DX:Tobacco use disorder Undiagnosed cardiac murmurs 08/26/2006 DX:U ndiagnosed cardiac murmurs Conductive hearing loss, inner ear 08/26/2006 DX:Conductive hearing loss, inner ear Family History Relation Name Status Comments Father Alive Mother CAD at 42, DM, Sister Alive kidney stones, DM Uncle prostate cancer Social History Tobacco Use Types Packs/Day Years Used Date Smoking Tobacco: Every Day Cigarettes Alcohol Use Standard Drinks/Week Comments Yes 0 (1 standard drink = 0.6 oz pur e alcohol) 1 a year rare Sex and Gender Information Value Date Recorded Sex Assigned at Not on file Legal Sex Male 12:29 AM EST Gender Identity Not on file Sexual Orientation Not on file Obstetrics History Last Filed Vital Signs Vital Sign Reading Time Taken Comments Blood Pressure - - Pulse - - Temperature - - Respiratory Rate - - Oxygen Saturation - - Inhaled Oxygen Concentration - - Weight 79.8 kg (176 lb) 07/10/2024 2:46 PM EST Height 165.1 cm (5' 5 ) 07/10/2024 2:46 PM EST Body Mass Index 29.29 07/10/2024 2:46 PM EST Plan of Treatment Health Maintenance Due Date Last Done Comments Diabetes: Annual GFR (Glomerular Filtration Rate) 1976 Diabetes: Annual Foot Exam 01/21/1986 Diabetes: Annual Retina Eye Exam 01/21/1986 Hepatitis B Vaccines (1 of 3 - 19+ 3-dose series) 01/21/1995 Pneumococcal Vaccine: Pediatrics (0 to 5 Years) and At-Risk Patients (6 to 64 Years) (2 of 2 - PCV) 07/06/2018 07/06/2017 Cholesterol Screening (Lipid Panel) 07/19/2022 11/05/2006 Depression Screening 07/19/2022 HIV Screening 07/19/2022 Hepatitis C Screening 07/19/2022 Social Influencers of Health Screening 07/19/2022 COVID-19 Vaccine (2023-2 5 season) 2024 Influenza Vaccine (#1) 2024 10/10/2017 Diabetes: Annual Urine Albumin-Creatinine Ratio (uACR) 07/11/2024 Diabetes: Blood Sugar Contro l Test (HGBA1C) 07/11/2024 Hypertension/CHF/CAD Annual BMP Blood Test 07/11/2024 DTaP,Tdap,and Td Vaccines (3 - Td or Tdap) 03/30/2027 03/30/2017, 09/06/2006, 09/06/2006 Colorectal Cancer Screening: Colonoscopy 07/26/2034 07/26/2024 HIB Vaccines Aged Out No longer eligi ble based on patient's age to complete this topic HPV Vaccines Aged Out No longer eligi ble based on patient's age to complete this topic Hepatitis A Vaccines Aged Out No long er eligible based on patient's age to complete this topic IPV Vaccines Aged Out No longer eligi ble based on patient's age to complete this topic MMR Vaccines Aged Out No longer eligi ble based on patient's age to complete this topic Meningococcal ACWY Vaccine Aged Out N o longer eligible based on patient's age to complete this topic Meningococcal B Vaccine Aged Out No l onger eligible based on patient's age to complete this topic RSV Immunization Patients Under 20 months Aged Out No longer eligible b ased on patient's age to complete this topic Varicella Vaccines Aged Out No longer eligible based on patient's age to complete this topic Procedures Procedure Name Priority Date/Time Associated Diagnosis Comments COLONOSCOPY Routine 07/26/2024 9:19 AM EST LIPID PANEL Routine 11/05/2006 from Last 3 Months or Most Recently Relevant to Health Maintenance Results * COLONOSCOPY (07/26/2024 9:19 AM EST) Anatomical Region Laterality Modality Endoscopy Historical Provider GI~PROCEDURE ORDERABLES F inal Result * (ABNORMAL) Lipid panel (11/05/2006) LDL/HDL Ratio 4 0 - 4 Triglycerides 79 0 - 150 mg/dL Cholesterol 214(A) 0 - 200 mg/dL HDL 52 >=40 mg/dL LDL Cholesterol 147(A) 0 - 100 mg/dL Blood Venous blood specimen / Unknown Historical Provider LAB BLOOD ORDERABLES Geeta l Result from Last 3 Months or Most Recently Relevant to Health Maintenance Insurance BLUE CROSS - ID Care Teams Systems Tester Relationship Specialty Start Date End Date Name, MD Emre [address] [place] [address] PCP - General Internal Medicine 06/07/24 [facility] [address] [place] [address] Consulting Physician Cardiology 07/10/24
== END 2024-11-20 15:38 | disposition home or self-care (01) ==
LOC: HO.LAB 15:37
PROVIDERS: PCP Nurse Practitioner Family; Visit Provider Clinical Nurse Specialist Psychiatric/Mental Health, Adult
DX: I42.9 Cardiomyopathy, unspecified (principal)
CPT/HCPCS: 36415; 84132